=== PATIENT | female | born 1960 | race Caucasian/White ===

== ENCOUNTER → 2017-12-14 11:44 | Outpatient (CLI) | payer BC, SELFPAY | PROVIDERS: Visit Provider Physician Assistant | DX: N39.0 Urinary tract infection, site not specified (principal) | CPT/HCPCS: 87086 ==

== ENCOUNTER → 2017-12-30 07:49 | Outpatient (CLI) | payer BC, SELFPAY ==
[2017-12-30 09:19] LABS: Add Manual Diff / Slide Review NO; Eosinophils Percent Auto 8.9 % (2-4); Hematocrit 38.4 % (36-46); Hemoglobin 13.1 g/dL (12.0-16.0); Lymphocytes Percent Auto 31.8 % (25-40); Mean Corpuscular HGB Conc 34.1 % (30-36); Mean Corpuscular Hemoglobin 32.5 PG (26-34); Mean Corpuscular Volume 95.3 fL (80-100); Monocytes Percent Auto 7.5 % (3-14); Neutrophils Absolute Auto 2700 /uL (3000-5900); Neutrophils Percent Auto 50.8 % (50-75); Platelet Count 291 X10^3/uL (150-400); Red Blood Cell Count 4.03 X10^6/uL (4.0-5.2); Red Cell Distribution Width 12.5 % (11.6-14.8); White Blood Cell Count 5.3 X10^3/uL (4.5-11.0)
[2017-12-30 09:29] LABS: Alanine Aminotransferase 28 IU/L (9-52); Albumin 4.2 g/dL (3.5-5.0); Albumin Globulin Ratio 1.4 (1.0-2.8); Alkaline Phosphatase 52 U/L (38-126); Aspartate Aminotransferase 27 IU/L (14-36); BUN Creatinine Ratio 14.4 (6-22); Bilirubin Total 0.4 mg/dL (0.2-1.3); Blood Urea Nitrogen 13 mg/dL (7-17); Calcium 9.9 mg/dL (8.4-10.2); Carbon Dioxide 34 mmol/L (22-32); Chloride 105 mmol/L (98-107); Cholesterol 225 mg/dL (140-199); Estimated Glomerular Filt Rate > 60.0 mL/min (>60); Glucose 82 mg/dL (70-100); HDL Cholesterol 60 mg/dL (40-60); HEMOLYSIS < 15 (0-50); LDL Cholesterol Calculated 146 mg/dL (<100); Potassium 4.1 mmol/L (3.4-5.1); Sodium 146 mmol/L (137-145); Total Protein 7.2 g/dL (6.3-8.2); Triglycerides 97 mg/dL (35-150)
[2017-12-30 10:23] LABS: Thyroid Stimulating Hormone 2.23 uIU/mL (0.47-4.68)
[2017-12-30 13:05] LABS: Appearance Urine UA CLEAR; Bilirubin Urine UA NEGATIVE (NEGATIVE); Color Urine UA YELLOW; Glucose Urine UA NEGATIVE (Normal); Ketones Urine UA NEGATIVE (NEGATIVE); Leukocyte Esterase Urine UA NEGATIVE (NEGATIVE); Nitrite Urine UA Negative (Negative); Occult Blood Urine UA NEGATIVE (Negative); Protein Urine UA NEGATIVE (Negative); Urobilinogen Urine UA 0.2 E.U./dL (0.2); pH Urine UA 7.5 (4.5-8.0)
== END ==
PROVIDERS: PCP Family Medicine; Visit Provider Family Medicine
DX: Z51.81 Encounter for therapeutic drug level monitoring (principal); E78.5 Hyperlipidemia, unspecified; F41.9 Anxiety disorder, unspecified; J45.909 Unspecified asthma, uncomplicated
CPT/HCPCS: 36415; 80053; 80061; 81003; 84443; 85025

== ENCOUNTER → 2018-03-05 10:14 | Outpatient (CLI) | payer BC, SELFPAY ==
--- NOTE | 2018-03-05 | DI.MG.S_ITS ---
BILATERAL DIGITAL SCREENING MAMMOGRAM 3D/2D WITH CAD: 03/05/2018 CLINICAL: Routine screening. Family history of breast cancer. Comparison is made to exams dated: 02/15/2017 mammogram and 02/03/2016 mammogram - [facility]. There are scattered fibroglandular elements in both breasts. Current study was also evaluated with a Computer Aided Detection (CAD) system. There is an oval mass in the left breast at 11 o'clock middle depth. No other significant masses, calcifications, or other findings are seen in either breast. IMPRESSION: INCOMPLETE: NEEDS ADDITIONAL IMAGING EVALUATION The oval mass in the left breast is indeterminate. Additional views with possible ultrasound are recommended. This exam was interpreted at Station ID: [id number]. NOTE: For mammograms, a report in lay terms will be sent to the patient. Approximately 15% of breast malignancies will not be visualized mammographically. In the management of a palpable breast mass, a negative mammogram must not discourage biopsy of a clinically suspicious lesion. Electronically Signed By: Angeles awad/ifeoma:03/05/2018 13:36:16 letter sent: Additional Imaging Needed ACR BI-RADS Category 0: Incomplete 3340F
== END ==
PROVIDERS: PCP Family Medicine; Visit Provider Family Medicine
DX: Z12.31 Encounter for screening mammogram for malignant neoplasm of breast (principal); Z80.3 Family history of malignant neoplasm of breast
CPT/HCPCS: 77063; 77067

== ENCOUNTER → 2018-03-24 14:07 | Outpatient (CLI) | payer BC, SELFPAY ==
--- NOTE | 2018-03-24 | DI.MG.S_ITS ---
UNILATERAL LEFT DIGITAL DIAGNOSTIC MAMMOGRAM 3D/2D WITH ADDITIONAL VIEWS: 03/24/2018 CLINICAL: Additional evaluation requested from prior study. Comparison is made to exams dated: 03/05/2018 mammogram - [facility], 02/15/2017 mammogram, and 02/03/2016 mammogram - [facility]. There are scattered fibroglandular elements in left breast. There is 0.5 cm oval low density focal asymmetry with an indistinct and circumscribed margin in the left breast at 12 o'clock middle depth. No other significant masses or calcifications are seen in the breast. IMPRESSION: INCOMPLETE: NEEDS ADDITIONAL IMAGING EVALUATION The 0.5 cm oval low density focal asymmetry in the left breast is indeterminate. An ultrasound is recommended. This exam was interpreted at Station ID: [id number]. NOTE: For mammograms, a report in lay terms will be sent to the patient. Approximately 15% of breast malignancies will not be visualized mammographically. In the management of a palpable breast mass, a negative mammogram must not discourage biopsy of a clinically suspicious lesion. Electronically Signed By: Junito buckley/ifeoma:03/24/2018 15:33:26 letter sent: Need Ultrasound ACR BI-RADS Category 0: Incomplete 3340F
--- NOTE | 2018-03-24 14:09 | DI.US.S_ITS ---
LIMITED ULTRASOUND OF LEFT BREAST: 03/24/2018 CLINICAL: Patient returns for additional imaging over a suspected mass in the left breast. Comparison is made to exams dated: 03/24/2018 mammogram, 03/05/2018 mammogram - [facility], and 02/15/2017 mammogram - [facility]. Color flow and real-time ultrasound of the left breast 12 o'clock region were performed on the areas of interest. There is 0.5 cm x 0.4 cm x 0.5 cm oval complicated cyst with a smooth internal wall in the left breast at 12 o'clock middle depth. This oval complicated cyst is hypoechoic with internal echoes. This likely correlates with mammography findings. Color flow imaging demonstrates that there is no vascularity present. IMPRESSION: PROBABLY BENIGN The 0.5 cm x 0.4 cm x 0.5 cm oval complicated cyst in the left breast is consistent with a complicated cyst and is probably benign. A follow-up mammogram and an ultrasound in 6 months is recommended to demonstrate stability. This exam was interpreted at Station ID: [id number]. Electronically Signed By: Junito buckley/:03/24/2018 17:04:01 letter sent: Followup Recommended Ultrasound BI-RADS: 3 Probably benign
== END ==
PROVIDERS: PCP Family Medicine; Visit Provider Family Medicine
DX: R92.8 Other abnormal and inconclusive findings on diagnostic imaging of breast (principal); N60.02 Solitary cyst of left breast
CPT/HCPCS: 76642; 77065; G0279

== ENCOUNTER → 2018-07-07 07:26 | Outpatient (CLI) | payer BC, SELFPAY ==
[2018-07-07 08:44] LABS: Cholesterol 251 mg/dL (140-199); HDL Cholesterol 68 mg/dL (40-60); LDL Cholesterol Calculated 161 mg/dL (<100); Triglycerides 108 mg/dL (35-150)
== END ==
PROVIDERS: PCP Family Medicine; Visit Provider Family Medicine
DX: E78.5 Hyperlipidemia, unspecified (principal)
CPT/HCPCS: 36415; 80061

== ENCOUNTER → 2018-09-07 13:54 | Outpatient (CLI) | payer BC, SELFPAY ==
--- NOTE | 2018-09-07 13:56 | DI.US.S_ITS ---
ULTRASOUND OF LEFT BREAST: 09/07/2018 CLINICAL: 6 month f/u lt. Comparison is made to exams dated: 09/07/2018 mammogram, 03/24/2018 ultrasound, 03/24/2018 mammogram, and 03/05/2018 mammogram - [facility]. Color flow ultrasound of the left breast was performed on the areas of interest. Saunders scale images of the real-time examination were reviewed. There is 0.5 cm cyst in the left breast at 12 o'clock middle depth. This cyst displays internal echoes. This abnormality is not significantly changed. IMPRESSION: PROBABLY BENIGN The 0.5 cm cyst in the left breast is consistent with a complicated cyst and is probably benign. A follow-up ultrasound in 6 months is recommended to demonstrate stability. This exam was interpreted at Station ID: [id number]. SUMMARY: The patient will be due for her bilateral mammogram at this time. Electronically Signed By: Angeles awad/:09/07/2018 16:35:36 letter sent: Followup Recommended Ultrasound BI-RADS: 3 Probably benign
--- NOTE | 2018-09-07 13:56 | DI.MG.S_ITS ---
UNILATERAL LEFT DIGITAL DIAGNOSTIC MAMMOGRAM 3D/2D SHORT-TERM FOLLOW-UP: 09/07/2018 CLINICAL: Patient returns for a 6 month follow up of the left breast. Comparison is made to exams dated: 03/24/2018 mammogram, 03/05/2018 mammogram - [facility], and 02/15/2017 mammogram - [facility]. There are scattered fibroglandular elements in left breast. The 0.5 cm oval low density focal asymmetry with an indistinct and circumscribed margin in the left breast at 12 o'clock middle depth is no longer seen. No other significant masses or calcifications are seen in the breast. IMPRESSION: INCOMPLETE: NEEDS ADDITIONAL IMAGING EVALUATION The previuosly seen focal asymmetry in the left breast at 12 o'clock is no longer vizualised. An ultrasound is recommended to evaluate the previously seen complicated cyst in the left breast and will be performed immediately after this study. This exam was interpreted at Station ID: [id number]. NOTE: For mammograms, a report in lay terms will be sent to the patient. Approximately 15% of breast malignancies will not be visualized mammographically. In the management of a palpable breast mass, a negative mammogram must not discourage biopsy of a clinically suspicious lesion. Electronically Signed By: Angeles Mcmanus M.D. lk/:09/07/2018 14:32:28 ACR BI-RADS Category 0: Incomplete 3340F
== END ==
PROVIDERS: PCP Family Medicine; Visit Provider Family Medicine
DX: R92.8 Other abnormal and inconclusive findings on diagnostic imaging of breast (principal); N60.02 Solitary cyst of left breast
CPT/HCPCS: 76642; 77065; G0279

== ENCOUNTER → 2018-11-09 08:59 | Outpatient (CLI) | payer BC, SELFPAY ==
[2018-11-09 10:14] LABS: Alanine Aminotransferase 17 IU/L (9-52); Albumin 3.8 g/dL (3.5-5.0); Albumin Globulin Ratio 1.4 (1.0-2.8); Alkaline Phosphatase 50 U/L (38-126); Aspartate Aminotransferase 26 IU/L (14-36); BUN Creatinine Ratio 17.5 (6-22); Bilirubin Total 0.3 mg/dL (0.2-1.3); Blood Urea Nitrogen 14 mg/dL (7-17); Calcium 9.4 mg/dL (8.4-10.2); Carbon Dioxide 30 mmol/L (22-32); Chloride 106 mmol/L (98-107); Cholesterol 146 mg/dL (140-199); Estimated Glomerular Filt Rate > 60.0 mL/min (>60); Globulin 2.7 g/dL (1.7-4.1); Glucose 87 mg/dL (70-100); HDL Cholesterol 68 mg/dL (40-60); HEMOLYSIS < 15 (0-50); LDL Cholesterol Calculated 61 mg/dL (<100); Potassium 4.1 mmol/L (3.4-5.1); Sodium 142 mmol/L (137-145); Total Protein 6.5 g/dL (6.3-8.2); Triglycerides 83 mg/dL (35-150)
== END ==
PROVIDERS: PCP Family Medicine; Visit Provider Family Medicine
DX: E78.5 Hyperlipidemia, unspecified (principal); Z51.81 Encounter for therapeutic drug level monitoring
CPT/HCPCS: 36415; 80053; 80061

== ENCOUNTER → 2019-03-10 09:05 | Outpatient (CLI) | payer BC, SELFPAY ==
--- NOTE | 2019-03-10 09:17 | DI.MG.S_ITS ---
BILATERAL DIGITAL DIAGNOSTIC MAMMOGRAM 3D/2D: 03/10/2019 CLINICAL: Short term follow up, due bilateral. Comparison is made to exams dated: 09/07/2018 mammogram, 03/24/2018 mammogram, 03/05/2018 mammogram - [facility], and 02/15/2017 mammogram - [facility]. There are scattered fibroglandular elements in both breasts. There is an oval low density focal asymmetry with an indistinct and circumscribed margin in the left breast at 12 o'clock middle depth. This is not significantly changed. No other significant masses, calcifications, or other findings are seen in either breast. IMPRESSION: INCOMPLETE: NEEDS ADDITIONAL IMAGING EVALUATION The oval low density focal asymmetry in the left breast is indeterminate. An ultrasound is recommended. This exam was interpreted at Station ID: [id number]. NOTE: For mammograms, a report in lay terms will be sent to the patient. Approximately 15% of breast malignancies will not be visualized mammographically. In the management of a palpable breast mass, a negative mammogram must not discourage biopsy of a clinically suspicious lesion. Electronically Signed By: Junito buckley/ifeoma:03/10/2019 10:03:42 ACR BI-RADS Category 0: Incomplete 3340F
--- NOTE | 2019-03-10 09:17 | DI.US.S_ITS ---
LIMITED ULTRASOUND OF LEFT BREAST: 03/10/2019 CLINICAL: 6 month follow-up of the left breast. Comparison is made to exams dated: 03/10/2019 mammogram, 09/07/2018 ultrasound, 09/07/2018 mammogram, 03/24/2018 ultrasound, 03/24/2018 mammogram, and 03/05/2018 mammogram - [facility]. Color flow and real-time ultrasound of the left breast 12 o'clock region were performed on the areas of interest. There is a 0.4 cm x 0.3 cm x 0.5 cm oval cyst in the left breast at 12 o'clock middle depth 5 cm from the nipple. This oval cyst is hypoechoic with internal echoes and posterior acoustic enhancement. This abnormality is not significantly changed and likely correlates with mammography findings. Color flow imaging demonstrates that there is no vascularity present. IMPRESSION: PROBABLY BENIGN The 0.4 cm x 0.3 cm x 0.5 cm oval cyst in the left breast likely represents a complicated cyst and is probably benign. A follow-up ultrasound in 6 months is recommended. A follow-up ultrasound in 6 months is recommended to demonstrate stability. This exam was interpreted at Station ID: [id number]. Electronically Signed By: Junito buckley/:03/10/2019 10:49:47 letter sent: Followup Recommended Ultrasound BI-RADS: 3 Probably benign
== END ==
PROVIDERS: PCP Family Medicine; Visit Provider Family Medicine
DX: R92.8 Other abnormal and inconclusive findings on diagnostic imaging of breast (principal); N60.02 Solitary cyst of left breast; E78.5 Hyperlipidemia, unspecified; Z13.220 Encounter for screening for lipoid disorders; Z13.29 Encounter for screening for other suspected endocrine disorder
CPT/HCPCS: 76642; 77066; G0279

== ENCOUNTER → 2019-05-12 09:25 | Outpatient (CLI) | payer BC, SELFPAY ==
[2019-05-12 09:55] LABS: Hematocrit 39.5 % (36-46); Hemoglobin 13.5 g/dL (12.0-16.0); Mean Corpuscular HGB Conc 34.3 % (30-36); Mean Corpuscular Hemoglobin 32.3 PG (26-34); Mean Corpuscular Volume 94.3 fL (80-100); Platelet Count 321 X10^3/uL (150-400); Red Blood Cell Count 4.19 X10^6/uL (4.0-5.2); Red Cell Distribution Width 12.1 % (11.6-14.8); White Blood Cell Count 5.5 X10^3/uL (4.5-11.0)
[2019-05-12 10:24] LABS: Alanine Aminotransferase 26 IU/L (<35); Albumin 4.2 g/dL (3.5-5.0); Albumin Globulin Ratio 1.4 (1.0-2.8); Alkaline Phosphatase 54 U/L (38-126); Aspartate Aminotransferase 31 IU/L (14-36); BUN Creatinine Ratio 18.8 (6-22); Bilirubin Total 0.4 mg/dL (0.2-1.3); Blood Urea Nitrogen 15 mg/dL (7-17); Calcium 9.7 mg/dL (8.4-10.2); Carbon Dioxide 31 mmol/L (22-32); Chloride 103 mmol/L (98-107); Cholesterol 169 mg/dL (140-199); Estimated Glomerular Filt Rate > 60.0 mL/min (>60); Glucose 89 mg/dL (70-100); HDL Cholesterol 64 mg/dL (40-60); HEMOLYSIS < 15 (0-50); LDL Cholesterol Calculated 86 mg/dL (<100); Sodium 142 mmol/L (137-145); Total Protein 7.2 g/dL (6.3-8.2); Triglycerides 96 mg/dL (35-150)
[2019-05-12 10:51] LABS: TSH w/ Reflex to FT4 2.82 uIU/mL (0.47-4.68)
== END ==
PROVIDERS: PCP Family Medicine; Visit Provider Nurse Practitioner Family
DX: Z00.00 Encounter for general adult medical examination without abnormal findings (principal); E78.5 Hyperlipidemia, unspecified; Z13.29 Encounter for screening for other suspected endocrine disorder
CPT/HCPCS: 36415; 80053; 80061; 84443; 85027

== ENCOUNTER → 2019-05-31 13:34 | Outpatient (CLI) | payer BC, SELFPAY | PROVIDERS: PCP Family Medicine; Referring Provider Nurse Practitioner Family; Visit Provider Nurse Practitioner Family | DX: M81.0 Age-related osteoporosis without current pathological fracture (principal); Z78.0 Asymptomatic menopausal state | CPT/HCPCS: 77080 ==

== ENCOUNTER → 2019-08-25 07:29 | Outpatient (CLI) | payer BC, SELFPAY ==
--- NOTE | 2019-08-25 07:33 | DI.US.S_ITS ---
ULTRASOUND OF LEFT BREAST: 08/25/2019 CLINICAL: 6 month follow-up of cysts. Comparison is made to exams dated: 03/10/2019 ultrasound, 03/10/2019 mammogram, 09/07/2018 ultrasound, 09/07/2018 mammogram, 03/24/2018 ultrasound, and 03/24/2018 mammogram - [facility]. Real-time ultrasound of the left breast was performed on the areas of interest. Saunders scale images of the real-time examination were reviewed. There is a stable 0.4 cm x 0.3 cm x 0.5 cm oval cyst in the left breast at 12 o'clock middle depth 5 cm from the nipple. This oval cyst is hypoechoic with internal echoes and posterior acoustic enhancement. This correlates with mammography findings. Color flow imaging demonstrates that there is no vascularity present. IMPRESSION: PROBABLY BENIGN The stable 0.4 cm x 0.3 cm x 0.5 cm oval cyst in the left breast likely represents a complicated cyst and is probably benign. A follow-up left ultrasound in 6 months is recommended to demonstrate stability. The patient will be due for her bilateral mammogram at that time. This exam was interpreted at Station ID: [id number]. Electronically Signed By: Angeles awad/:08/25/2019 08:45:44 letter sent: Followup Recommended Ultrasound BI-RADS: 3 Probably benign
[2019-08-25 08:41] LABS: Alanine Aminotransferase 22 IU/L (<35); Albumin 3.9 g/dL (3.5-5.0); Albumin Globulin Ratio 1.3 (1.0-2.8); Alkaline Phosphatase 37 U/L (38-126); Aspartate Aminotransferase 30 IU/L (14-36); Bilirubin Total 0.3 mg/dL (0.2-1.3); Blood Urea Nitrogen 15 mg/dL (7-17); Calcium 9.2 mg/dL (8.4-10.2); Carbon Dioxide 30 mmol/L (22-32); Chloride 105 mmol/L (98-107); Estimated Glomerular Filt Rate > 60.0 mL/min (>60); Glucose 91 mg/dL (70-100); HEMOLYSIS < 15 (0-50); Potassium 3.7 mmol/L (3.4-5.1); Sodium 140 mmol/L (137-145); Total Protein 6.9 g/dL (6.3-8.2)
[2019-08-25 08:58] LABS: Vitamin D 25 Hydroxy (D3) 64.9 ng/mL (30.0-100.0)
== END ==
PROVIDERS: PCP Nurse Practitioner Family; Referring Provider Nurse Practitioner Family; Visit Provider Nurse Practitioner Family
DX: R92.8 Other abnormal and inconclusive findings on diagnostic imaging of breast (principal); N60.02 Solitary cyst of left breast; M81.0 Age-related osteoporosis without current pathological fracture
CPT/HCPCS: 36415; 76642; 80053; 82306

== ENCOUNTER → 2020-01-25 15:00 | Outpatient (CLI) | payer BC, SELFPAY ==
--- NOTE | 2020-01-25 15:02 | DI.RAD.S_ITS ---
PROCEDURE: XR KNEE LT 3V INDICATIONS: fall TECHNIQUE: 3 views of the knee were acquired. COMPARISON: None. FINDINGS: Bones: No fractures or dislocations. No suspicious bony lesions. Mild tricompartmental osteoarthritis. Soft tissues: No joint effusion. No suspicious soft tissue calcifications. IMPRESSION: No fracture. No acute osseous lesion. If symptoms and/or clinical suspicion for pathology persists, further assessment with repeat radiographs (7-10 days) or advanced imaging (e.g. CT, MRI or bone scan) may be helpful. Dictated by: Martha Wilson MD, PhD on 01/25/2020 at 16:50 Approved by: Martha Wilson MD, PhD on 01/25/2020 at 16:51
--- NOTE | 2020-01-25 15:02 | DI.RAD.S_ITS ---
PROCEDURE: XR TIBIA FIBULA RT 2V INDICATIONS: fall TECHNIQUE: 2 views of the tibia and fibula were acquired. COMPARISON: None. FINDINGS: Bones: Patient is status post ORIF of distal tibia fibular fractures. No acute fractures or dislocations. No suspicious bony lesions. Soft tissues: No suspicious soft tissue calcifications or masses. IMPRESSION: No acute fracture. No acute osseous lesion. If symptoms and/or clinical suspicion for pathology persists, further assessment with repeat radiographs (7-10 days) or advanced imaging (e.g. CT, MRI or bone scan) may be helpful. Dictated by: Martha Wilson MD, PhD on 01/25/2020 at 16:49 Approved by: Martha Wilson MD, PhD on 01/25/2020 at 16:50
--- NOTE | 2020-01-25 15:02 | DI.RAD.S_ITS ---
PROCEDURE: XR ANKLE LT MIN 3V INDICATIONS: fall TECHNIQUE: 3 views of the ankle were acquired. COMPARISON: [facility], CR, XR TIBIA FIBULA LT 2V, 01/25/2020, 14:53. FINDINGS: Bones: Postsurgical changes compatible with medial malleolus and distal fibular fractures noted. Orthopedic hardware is intact. No lucencies at the bone hardware interface. Fractures have healed in anatomic alignment. No acute fracture. Soft tissues: No tibiotalar joint effusion. Achilles tendon appears normal. IMPRESSION: 1. Status post ORIF of medial malleolus and distal fibular fractures. 2. No acute fracture identified. Dictated by: Martha Wilson MD, PhD on 01/25/2020 at 16:48 Approved by: Martha Wilson MD, PhD on 01/25/2020 at 16:49
== END ==
PROVIDERS: PCP Nurse Practitioner Family; Referring Provider Nurse Practitioner Family; Visit Provider Nurse Practitioner Family
DX: S89.92XA Unspecified injury of left lower leg, initial encounter (principal); M17.12 Unilateral primary osteoarthritis, left knee; M81.0 Age-related osteoporosis without current pathological fracture; M85.879 Other specified disorders of bone density and structure, unspecified ankle and foot; Z98.890 Other specified postprocedural states; W19.XXXA Unspecified fall, initial encounter
CPT/HCPCS: 73562; 73590; 73610

== ENCOUNTER → 2020-02-27 08:45 | Outpatient (CLI) | payer BC, SELFPAY ==
--- NOTE | 2020-02-27 08:47 | DI.MG.S_ITS ---
BILATERAL DIGITAL DIAGNOSTIC MAMMOGRAM 3D/2D SHORT-TERM FOLLOW-UP: 02/27/2020 CLINICAL: Patient returns for a 6 month follow up of the left breast, due for bilateral exam. Comparison is made to exams dated: 03/10/2019 mammogram, 09/07/2018 mammogram, 03/24/2018 mammogram, and 03/05/2018 mammogram - [facility]. The tissue of both breasts is heterogeneously dense. This may lower the sensitivity of mammography. There is a 5 mm round low density asymmetry in the left breast central to the nipple middle depth. This is the abnormality being followed and is less prominent. There also is a 1.1 cm oval focal asymmetry in the left breast at 12 o'clock middle depth. This has become more prominent and increased in size. No other significant masses, calcifications, or other findings are seen in either breast. IMPRESSION: INCOMPLETE: NEEDS ADDITIONAL IMAGING EVALUATION The 5 mm round low density asymmetry in the left breast central to the nipple middle depth is consistent with a complicated cyst by previous ultrasound evaluations. An ultrasound is recommended to document continuted stability. The 1.1 cm oval focal asymmetry in the left breast at 12 o'clock middle depth most likely is a cyst but remains indeterminate. An ultrasound is recommended. This was performed immediately following this exam. This exam was interpreted at Station ID: [id number]. NOTE: For mammograms, a report in lay terms will be sent to the patient. Approximately 15% of breast malignancies will not be visualized mammographically. In the management of a palpable breast mass, a negative mammogram must not discourage biopsy of a clinically suspicious lesion. Electronically Signed By: Qing alba/:02/27/2020 10:35:43 ACR BI-RADS Category 0: Incomplete 3340F
--- NOTE | 2020-02-27 08:47 | DI.US.S_ITS ---
LIMITED ULTRASOUND OF LEFT BREAST: 02/27/2020 CLINICAL: 6 month follow-up of cysts. Comparison is made to exams dated: 02/27/2020 mammogram, 08/25/2019 ultrasound, 03/10/2019 ultrasound, 03/10/2019 mammogram, 09/07/2018 ultrasound, and 09/07/2018 mammogram - [facility]. Color flow and real-time ultrasound of the left breast 12 o'clock region were performed. Saunders scale images of the real-time examination were reviewed. There is a benign 0.4 cm x 0.3 cm x 0.5 cm oval cyst in the left breast at 12 o'clock middle depth 5 cm from the nipple. This oval cyst is hypoechoic. No vascularity. It has been stable for two years. No finding to correspond to the patient's 12:00 1.1 cm oval mammographic abnormality. IMPRESSION: PROBABLY BENIGN The 0.5 cm oval cyst in the left breast is consistent with a complicated cyst, stable, and is therefore benign. A follow-up left mammogram in 6 months is recommended to demonstrate stability of a separate oval 1.1 cm asymmetry seen in the left breast without sonographic correlate. Findings and recommendations were conveyed to the patient at time of exam. This exam was interpreted at Station ID: [id number]. Electronically Signed By: Qing alba/:02/27/2020 11:17:50 letter sent: Followup Recommended Ultrasound BI-RADS: 3 Probably benign
[2020-02-27 12:20] LABS: Hematocrit 38.3 % (36-46); Hemoglobin 12.9 g/dL (12.0-16.0); Mean Corpuscular HGB Conc 33.7 % (30-36); Mean Corpuscular Hemoglobin 32.4 PG (26-34); Mean Corpuscular Volume 96.1 fL (80-100); Platelet Count 254 X10^3/uL (150-400); Red Blood Cell Count 3.98 X10^6/uL (4.0-5.2); Red Cell Distribution Width 12.3 % (11.6-14.8); White Blood Cell Count 5.3 X10^3/uL (4.5-11.0)
[2020-02-27 12:40] LABS: Alanine Aminotransferase 26 IU/L (<35); Albumin 4.3 g/dL (3.5-5.0); Albumin Globulin Ratio 1.3 (1.0-2.8); Alkaline Phosphatase 51 U/L (38-126); Aspartate Aminotransferase 33 IU/L (14-36); BUN Creatinine Ratio 18.8 (6-22); Bilirubin Total 0.4 mg/dL (0.2-1.3); Blood Urea Nitrogen 16 mg/dL (7-17); Calcium 9.2 mg/dL (8.4-10.2); Carbon Dioxide 32 mmol/L (22-32); Chloride 104 mmol/L (98-107); Cholesterol 165 mg/dL (140-199); Estimated Glomerular Filt Rate > 60.0 mL/min (>60); Globulin 3.2 g/dL (1.7-4.1); Glucose 96 mg/dL (80-110); HDL Cholesterol 62 mg/dL (40-60); HEMOLYSIS < 15 (0-50); LDL Cholesterol Calculated 84 mg/dL (<100); Potassium 4.1 mmol/L (3.4-5.1); Sodium 140 mmol/L (137-145); Total Protein 7.5 g/dL (6.3-8.2); Triglycerides 96 mg/dL (35-150)
[2020-02-27 12:47] LABS: Vitamin D 25 Hydroxy (D3) 51.4 ng/mL (30.0-100.0)
== END ==
PROVIDERS: PCP Nurse Practitioner Family; Referring Provider Nurse Practitioner Family; Visit Provider Nurse Practitioner Family
DX: R92.8 Other abnormal and inconclusive findings on diagnostic imaging of breast (principal); N60.02 Solitary cyst of left breast; J45.909 Unspecified asthma, uncomplicated; M81.0 Age-related osteoporosis without current pathological fracture; E78.5 Hyperlipidemia, unspecified
CPT/HCPCS: 36415; 76642; 77066; 80053; 80061; 82306; 85027; G0279

== ENCOUNTER → 2020-06-03 09:27 | Outpatient (CLI) | payer BC, SELFPAY ==
--- NOTE | 2020-06-03 09:31 | DI.RAD.S_ITS ---
PROCEDURE: XR DEXA AXIAL SKELETON INDICATIONS: monitoring COMPARISON: None. FINDINGS: This blank DEXA report has been sent in error by the PACS system. The correct and complete report will be forthcoming in 1-2 days. Thank you for your patience and understanding. Dictated by: Dimitry Temple M.D. on 06/03/2020 at 17:16 Approved by: Dimitry Temple M.D. on 06/03/2020 at 17:17
== END ==
PROVIDERS: PCP Nurse Practitioner Family; Referring Provider Nurse Practitioner Family; Visit Provider Nurse Practitioner Family
DX: M81.0 Age-related osteoporosis without current pathological fracture (principal); Z78.0 Asymptomatic menopausal state; Z82.62 Family history of osteoporosis
CPT/HCPCS: 77080

== ENCOUNTER → 2020-07-26 10:16 | Outpatient (CLI) | payer BC, SELFPAY ==
[2020-07-26] MEDS: COVID-19 VACC #1, MRNA(MOD) 100 MCG/0.5 ML VIAL IM (10:22)
== END ==
PROVIDERS: PCP Nurse Practitioner Family; Visit Provider Internal Medicine
DX: Z23 Encounter for immunization (principal)
CPT/HCPCS: 0011A; 91301

== ENCOUNTER → 2020-08-22 13:00 | Outpatient (CLI) | payer BC, SELFPAY ==
--- NOTE | 2020-08-22 13:02 | DI.MG.S_ITS ---
UNILATERAL LEFT DIGITAL DIAGNOSTIC MAMMOGRAM 3D/2D SHORT-TERM FOLLOW-UP: 08/22/2020 CLINICAL: Short term follow up for the left breast. Comparison is made to exams dated: 02/27/2020 mammogram, 03/10/2019 mammogram, 09/07/2018 mammogram, and 03/24/2018 mammogram - [facility]. The tissue of left breast is heterogeneously dense. This may lower the sensitivity of mammography. There is a 1.1 cm focal asymmetry in the left breast at 12 o'clock middle depth 5.8 cm from the nipple. This is less prominent. No other significant masses or calcifications are seen in the breast. IMPRESSION: PROBABLY BENIGN The 1.1 cm focal asymmetry in the left breast is probably benign. A follow-up mammogram in 6 months is recommended. A follow-up mammogram in 6 months is recommended to demonstrate stability. This exam was interpreted at Station ID: [id number]. NOTE: For mammograms, a report in lay terms will be sent to the patient. Approximately 15% of breast malignancies will not be visualized mammographically. In the management of a palpable breast mass, a negative mammogram must not discourage biopsy of a clinically suspicious lesion. Electronically Signed By: Jordan Castillo M.D., jr/ifeoma:08/22/2020 13:42:52 letter sent: Followup Recommended ACR BI-RADS Category 3: Probably benign 3343F
[2020-08-22 13:35] LABS: Add Manual Diff / Slide Review NO; Basophils Absolute Auto 100 /uL (0-100); Eosinophils Absolute Auto 400 /uL (0-450); Hematocrit 37.5 % (36-46); Hemoglobin 12.9 g/dL (12.0-16.0); Lymphocytes Absolute Auto 1600 /uL (1100-4500); Lymphocytes Percent Auto 26.2 % (25-40); Mean Corpuscular HGB Conc 34.5 % (30-36); Mean Corpuscular Hemoglobin 32.9 PG (26-34); Mean Corpuscular Volume 95.5 fL (80-100); Monocytes Absolute Auto 500 /uL (0-900); Monocytes Percent Auto 7.4 % (3-14); Neutrophils Absolute Auto 3600 /uL (1500-7000); Neutrophils Percent Auto 58.4 % (50-75); Platelet Count 270 X10^3/uL (150-400); Red Blood Cell Count 3.93 X10^6/uL (4.0-5.2); Red Cell Distribution Width 12.6 % (11.6-14.8); White Blood Cell Count 6.2 X10^3/uL (4.5-11.0)
[2020-08-22 13:52] LABS: Alanine Aminotransferase 23 IU/L (<35); Albumin 4.1 g/dL (3.5-5.0); Albumin Globulin Ratio 1.4 (1.0-2.8); Alkaline Phosphatase 43 U/L (38-126); Aspartate Aminotransferase 31 IU/L (14-36); BUN Creatinine Ratio 16.3 (6-22); Bilirubin Total 0.3 mg/dL (0.2-1.3); Blood Urea Nitrogen 16 mg/dL (7-17); Calcium 9.6 mg/dL (8.4-10.2); Carbon Dioxide 27 mmol/L (22-32); Chloride 105 mmol/L (98-107); Estimated Glomerular Filt Rate 57.9 mL/min (>60); Glucose 99 mg/dL (80-110); HEMOLYSIS < 15 (0-50); Potassium 4.2 mmol/L (3.4-5.1); Sodium 138 mmol/L (137-145); Total Protein 7.1 g/dL (6.3-8.2)
== END ==
PROVIDERS: PCP Nurse Practitioner Family; Referring Provider Nurse Practitioner Family; Visit Provider Nurse Practitioner Family
DX: D24.2 Benign neoplasm of left breast (principal); E78.5 Hyperlipidemia, unspecified; J45.909 Unspecified asthma, uncomplicated; M81.0 Age-related osteoporosis without current pathological fracture; M85.879 Other specified disorders of bone density and structure, unspecified ankle and foot
CPT/HCPCS: 36415; 77065; 80053; 85025; G0279

== ENCOUNTER → 2020-08-23 10:18 | Outpatient (CLI) | payer BC, SELFPAY ==
[2020-08-23] MEDS: COVID-19 VACC #2, MRNA(MOD) 100 MCG/0.5 ML VIAL IM (10:33)
== END ==
PROVIDERS: PCP Nurse Practitioner Family; Visit Provider Internal Medicine
DX: Z23 Encounter for immunization (principal)
CPT/HCPCS: 0012A; 91301

== ENCOUNTER → 2020-09-24 10:43 | Outpatient (CLI) | payer BC, SELFPAY | PROVIDERS: PCP Nurse Practitioner Family; Visit Provider Physician Assistant | DX: N34.3 Urethral syndrome, unspecified (principal) | CPT/HCPCS: 87086 ==

== ENCOUNTER → 2020-10-02 10:28 | Outpatient (CLI) | payer BC, SELFPAY | PROVIDERS: PCP Nurse Practitioner Family; Visit Provider Physician Assistant | DX: N30.01 Acute cystitis with hematuria (principal) | CPT/HCPCS: 87086 ==

== ENCOUNTER → 2020-12-04 10:55 | Outpatient (CLI) | payer BC, SELFPAY ==
[2020-12-04 13:33] LABS: Blood Urea Nitrogen 13 mg/dL (7-17); Carbon Dioxide 30 mmol/L (22-32); Chloride 106 mmol/L (98-107); Estimated Glomerular Filt Rate > 60.0 mL/min (>60); Glucose 90 mg/dL (80-110); HEMOLYSIS < 15 (0-50); Potassium 4.2 mmol/L (3.4-5.1); Sodium 140 mmol/L (137-145)
== END ==
PROVIDERS: PCP Nurse Practitioner Family; Referring Provider Specialist; Visit Provider Specialist
DX: Z01.812 Encounter for preprocedural laboratory examination (principal)
CPT/HCPCS: 36415; 80048

== ENCOUNTER → 2020-12-09 12:36 | Outpatient (CLI) | payer BC, SELFPAY ==
--- NOTE | 2020-12-09 12:37 | DI.CT.S_ITS ---
PROCEDURE: CT ABDOMEN PELVIS WO/W CON INDICATIONS: Microscopic hematuria TECHNIQUE: Optional 5 mm thick noncontrast images acquired from the diaphragm to the symphysis pubis. After the administration of intravenous contrast, 5 mm thick images acquired from the diaphragm to the symphysis pubis after a 10-minute delay. 2 mm thick coronal and sagittal reformats were then performed of the kidneys and ureters. For radiation dose reduction, the following was used: automated exposure control, adjustment of mA and/or kV according to patient size. COMPARISON: None. FINDINGS: Image quality: Excellent. Lung bases: Lung bases are clear. Heart size is normal. Note is made of a soft tissue prominence at the upper gastric cardia to the degree that a mass lesion in this area is suspected. There is also a small hiatal hernia more superiorly at the esophagogastric junction. Urinary system: Both kidneys are normal in size, without hydronephrosis or nephrolithiasis on pre-contrast images. No perinephric fat stranding. There is normal bilateral renal enhancement. Renal calyces appear normal in morphology when filled with contrast. Opacified portions of both ureters demonstrate normal caliber. Bladder wall thickness is normal. No calcified bladder stones. Other solid organs: Liver is normal in size and enhancement. Gallbladder appears normal . Biliary system is non dilated. Pancreas enhances normally. Spleen is normal in size and enhancement. No adrenal nodules. Peritoneum and bowel: Bowel loops demonstrate normal wall thickness and caliber. No free fluid or air. Nodes and vessels: No retroperitoneal or mesenteric adenopathy by size criteria. Aorta and inferior vena cava are normal in size. Abdominal wall: No ventral hernias. Pelvis: No pathologic free pelvic fluid. No inguinal hernias or adenopathy. Bones: No suspicious bony lesions. No vertebral body compression fractures. IMPRESSION: 1. There is an unexpected finding of a soft tissue prominence at the gastric cardia, immediately below a small hiatal hernia. This is in an area of relative absence of collapse of the stomach and the appearance warrants both clinical correlation and consideration of upper GI examination and/or endoscopies. 2. A source of microscopic hematuria is not seen. No urinary tract stone is found. No urothelial or renal cortical mass lesion is seen. Dictated by: Alber Ribera M.D. on 12/09/2020 at 16:24 Approved by: Alber Ribera M.D. on 12/09/2020 at 16:32
== END ==
PROVIDERS: PCP Nurse Practitioner Family; Referring Provider Specialist; Visit Provider Specialist
DX: R31.29 Other microscopic hematuria (principal); R30.0 Dysuria; R39.9 Unspecified symptoms and signs involving the genitourinary system; K44.9 Diaphragmatic hernia without obstruction or gangrene; K31.9 Disease of stomach and duodenum, unspecified; Z87.442 Personal history of urinary calculi
CPT/HCPCS: 74178

== ENCOUNTER → 2020-12-18 11:30 | Outpatient (CLI) | payer BC, SELFPAY ==
[2020-12-18 12:05] LABS: COVID19 -Nasal RAPID Negative (Negative)
== END ==
PROVIDERS: PCP Nurse Practitioner Family; Visit Provider Surgery
DX: Z20.822 Contact with and (suspected) exposure to COVID-19 (principal); Z01.812 Encounter for preprocedural laboratory examination
CPT/HCPCS: 87635

== ENCOUNTER 2020-12-19 12:38 | Day surgery (SDC) | payer BC, SELFPAY ==
--- NOTE | 2020-12-19 | PATH_ITS ---
[facility] Accession Number: [id number] . 01 Material submitted: . gastrointestinal site - GASTRIC CARDIA . 01 Clinical history: . SDC . 02 Diagnosis: Stomach, Cardia, Biopsy: Oxyntic-type mucosa with mild chronic inflammation. Negative for Helicobacter by immunohistochemistry. Negative for intestinal metaplasia. Negative for dysplasia and malignancy. V 12/24/2020 1422 Local . 02 Electronically signed: . Margaret Grewal MD, Pathologist NPI- [id number] . 01 Gross description: . GASTRIC CARDIA: Received in formalin are 2 fragment(s) of tran, soft tissue measuring 0.4 x 0.2 x 0.1 cm to 0.3 x 0.2 x 0.1 cm submitted entirely in 1 cassette(s) /QBJ 12/20/2020 0306 Local . 02 Microscopic: . An immunohistochemical stain was performed to evaluate for Helicobacter organisms and is negative. The control stain showed appropriate reactivity. . * This test was developed and its performance characteristics determined by [facility]. It has not been cleared or approved by the U.S. Food and Drug Administration. The FDA has determined that such clearance or approval is not necessary. This test is used for clinical purposes. It should not be regarded as investigational or for research. . 02 Pathologist provided ICD-10: K31.89 . 02 CPT . 585239, [id number] Performed at: 01 [facility] [address] [address], [place], [place] [id number] MD Junito Garvey MD Phone: [phone] Performed at: [address] [place] [id number] [place] [id number] MD Margaret Grewal MD Phone: [phone]
[2020-12-19 13:15] VITALS: BP 95/62; PULSE 66; RESP 14; TEMP 35.5; O2SAT 97; BMI 26.6
[2020-12-19] MEDS: LACTATED RINGERS 1,000 ML 200 ML IV (13:23)
--- NOTE | 2020-12-19 13:53 | PM.PREOP ---
Pre-operative Note Interval Note History & Physical reviewed/Exam performed by Physician: Yes Changes to H&P: No
--- NOTE | 2020-12-19 14:13 | PM.OP.ENDO ---
Operative Date/Time/Diagnoses Date of procedure: 12/19/20 Time of procedure: 14:13 Pre-op diagnosis: Incidental gastric mass Post-op diagnosis: other (Normal stomach) Procedure & Clinicians Study performed: Esophagoduodenoscopy Same procedure as scheduled: Yes Indications: Incidental finding of gastric thickening the cardia on CT Surgeon: Sidney Huizar Procedure Notes Procedure in detail: Patient placed in left lateral decubitus position. Time out was performed. Procedural sedation was administered with Versed and Fentanyl. A bite block was placed. the scope was inserted into the mouth and advanced through the esophagus and into the stomach. The pylorus was intubated and the duodenum was normal to the 2nd portion. The scope was retroflexed within the stomach and there was a moderate hiatal hernia. At the gastric cardia there was prominent submucosal thickening but no sidney mass, perhaps a gastric lipoma. Biopsy performed with forceps. No ulcers. The scope was withdrawn into the esophagus the Z line was seen at 30 cm from the incisions. There was no Contreras's esophagitis or masses or strictures. Stomach was desufflated and scope removed. Patient tolerated procedure well. Specimen(s): other (gastric cardia) Complications: none Impression: grossly normal stomach Post-procedure Plan for aftercare: will notify with biopsy results Disposition: same day surgery
[2020-12-19] MEDS: fentaNYL 250 MCG/5 ML INJ IV (14:14)
[2020-12-19] MEDS: MIDAZOLAM 5 MG/5 ML VIAL IV (14:15)
[2020-12-19 14:16] VITALS: BP 106/62; PULSE 72; RESP 16; TEMP 36.7; O2SAT 95
[2020-12-19 14:21] VITALS: BP 99/74; PULSE 73; RESP 16; O2SAT 95
[2020-12-19 14:26] VITALS: BP 87/63; PULSE 65; RESP 16; O2SAT 97
[2020-12-19 14:50] VITALS: BP 91/54; PULSE 63; RESP 13; O2SAT 100
== END 2020-12-19 15:13 | disposition home or self-care (01) ==
PROVIDERS: PCP Nurse Practitioner Family; Referring Provider Surgery; Visit Provider Surgery
PROC: 0DJ08ZZ Inspection of Upper Intestinal Tract, Via Natural or Artificial Opening Endoscopic (ICD-10-PCS; CPT 43235; principal; 2020-12-19 13:45)
DX: K29.50 Unspecified chronic gastritis without bleeding (principal); K44.9 Diaphragmatic hernia without obstruction or gangrene
CPT/HCPCS: 43239; J2250; J3010

== ENCOUNTER → 2021-02-14 12:39 | Outpatient (CLI) | payer BC, SELFPAY ==
--- NOTE | 2021-02-14 12:41 | DI.MG.S_ITS ---
BILATERAL DIGITAL DIAGNOSTIC MAMMOGRAM 3D/2D: 02/14/2021 CLINICAL: Short term follow up for the left breast. Comparison is made to exams dated: 08/22/2020 mammogram, 02/27/2020 mammogram, 03/10/2019 ultrasound, 02/27/2020 ultrasound, 08/25/2019 ultrasound, and 03/05/2018 mammogram - [facility]. The tissue of both breasts is heterogeneously dense. This may lower the sensitivity of mammography. There is an oval low density focal asymmetry in the left breast at 12 o'clock middle depth. This is less prominent and was not seen on the prior ultrasound. There also is a stable benign oval complicated cyst in the left breast central to the nipple middle depth. This previously demonstrated long-term stability. No other significant masses, calcifications, or other findings are seen in either breast. IMPRESSION: PROBABLY BENIGN Focal asymmetry in the left breast at 12 o'clock middle depth resembles fibroglandular tissue and is probably benign. A follow-up mammogram in 12 months is recommended to demonstrate long-term stability. Exam findings were conveyed to the patient. This exam was interpreted at Station ID: [id number]. NOTE: For mammograms, a report in lay terms will be sent to the patient. Approximately 15% of breast malignancies will not be visualized mammographically. In the management of a palpable breast mass, a negative mammogram must not discourage biopsy of a clinically suspicious lesion. Electronically Signed By: Hung Aguilar M.D. slc/:02/14/2021 13:21:00 letter sent: Followup Recommended ACR BI-RADS Category 3: Probably benign 3343F
== END ==
PROVIDERS: PCP Nurse Practitioner Family; Referring Provider Nurse Practitioner Family; Visit Provider Nurse Practitioner Family
DX: R92.8 Other abnormal and inconclusive findings on diagnostic imaging of breast (principal); N64.89 Other specified disorders of breast
CPT/HCPCS: 77066; G0279

== ENCOUNTER → 2021-02-25 08:36 | Outpatient (CLI) | payer BC, SELFPAY ==
[2021-02-25 09:44] LABS: Hematocrit 37.8 % (36-46); Hemoglobin 12.8 g/dL (12.0-16.0); Mean Corpuscular HGB Conc 33.9 % (30-36); Mean Corpuscular Volume 94.5 fL (80-100); Platelet Count 265 X10^3/uL (150-400); Red Cell Distribution Width 12.4 % (11.6-14.8); White Blood Cell Count 5.6 X10^3/uL (4.5-11.0)
[2021-02-25 10:00] LABS: Alanine Aminotransferase 27 IU/L (<35); Albumin 4.2 g/dL (3.5-5.0); Albumin Globulin Ratio 1.6 (1.0-2.8); Alkaline Phosphatase 45 U/L (38-126); Aspartate Aminotransferase 32 IU/L (14-36); BUN Creatinine Ratio 17.2 (6-22); Bilirubin Total 0.4 mg/dL (0.2-1.3); Blood Urea Nitrogen 17 mg/dL (7-17); Calcium 9.7 mg/dL (8.4-10.2); Carbon Dioxide 30 mmol/L (22-32); Chloride 103 mmol/L (98-107); Cholesterol 173 mg/dL (140-199); Globulin 2.6 g/dL (1.7-4.1); Glucose 94 mg/dL (80-110); HDL Cholesterol 70 mg/dL (40-60); HEMOLYSIS < 15 (0-50); LDL Cholesterol Calculated 84 mg/dL (<100); Potassium 4.2 mmol/L (3.4-5.1); Sodium 140 mmol/L (137-145); Total Protein 6.8 g/dL (6.3-8.2); Triglycerides 97 mg/dL (35-150)
[2021-02-25 10:19] LABS: Vitamin D 25 Hydroxy (D3) 58.7 ng/mL (30.0-100.0)
== END ==
PROVIDERS: PCP Nurse Practitioner Family; Referring Provider Nurse Practitioner Family; Visit Provider Nurse Practitioner Family
DX: J45.909 Unspecified asthma, uncomplicated (principal); M81.0 Age-related osteoporosis without current pathological fracture; E78.5 Hyperlipidemia, unspecified
CPT/HCPCS: 36415; 80053; 80061; 82306; 85027

== ENCOUNTER → 2021-08-27 11:38 | Outpatient (CLI) | payer BC, SELFPAY | PROVIDERS: PCP Family Medicine; Referring Provider Family Medicine; Visit Provider Family Medicine | DX: M81.0 Age-related osteoporosis without current pathological fracture (principal); Z78.0 Asymptomatic menopausal state; M19.90 Unspecified osteoarthritis, unspecified site | CPT/HCPCS: 77080 ==

== ENCOUNTER 2021-09-16 22:19 | Emergency (ER) | payer BC, SELFPAY ==
[2021-09-16] VITALS (13 sets, daily range): BP systolic 81–148; BP diastolic 46–77; PULSE 55–79; RESP 15–23; TEMP 36.7; O2SAT 96–98
--- NOTE | 2021-09-16 22:27 | DI.RAD.S_ITS ---
PROCEDURE: XR CHEST 1V INDICATIONS: chest pain TECHNIQUE: One view of the chest was acquired. COMPARISON: None. FINDINGS: Surgical changes and devices: None. Lungs and pleura: Lungs are clear. No pleural effusions or pneumothorax. Mediastinum: Mediastinal contours appear normal. Heart size is normal. Bones and chest wall: No suspicious bony lesions. Overlying soft tissues appear unremarkable. IMPRESSION: 1. No acute cardiopulmonary disease. Dictated by: Junito Moreau M.D. on 09/16/2021 at 23:13 Approved by: Junito Moreau M.D. on 09/16/2021 at 23:14
--- NOTE | 2021-09-16 22:42 | ED_ITS ---
HPI - Chest Pain General Chief Complaint: Chest Pain Stated Complaint: chest pain radiating to back Time Seen by Provider: 09/16/21 22:28 Source: patient Mode of arrival: Ambulatory History of Present Illness HPI narrative: 60-year-old female nonsmoker with history of hypertension and hyperlipidemia as well as GERD presents with family in the chief complaint of some burning upper abdominal discomfort that radiates to her back. She denies any exertional component nor recent fatigue or unexplained shortness of breath. She denies dizziness, weakness or lightheadedness. She has no diaphoresis. She has had no recent travel, injury, history of blood clot or known cancer. She denies that food or drink make this worse but states lying flat seems to exacerbate her symptoms. Has only very minimal symptoms on arrival Related Data Home Medications Medication Instructions Recorded Confirmed cholecalciferol (vitamin D3) 50 50 mcg PO DAILY 09/04/20 03/26/21 mcg (2,000 unit) capsule multivitamin 1 tab PO DAILY 09/04/20 03/26/21 Previous Rx's Medication Instructions Recorded budesonide-formoterol HFA 160 2 puff INHALATION ONCE PRN #10.2 12/02/18 mcg-4.5 mcg/actuation aerosol gram inhaler (Symbicort) citalopram 20 mg tablet 10 mg PO DAILY #90 tab 01/01/21 alendronate 70 mg tablet See Rx Instructions .ROUTE 06/12/21 .COMPLEX #12 tab atorvastatin 20 mg tablet See Rx Instructions .ROUTE 07/01/21 .COMPLEX #90 tab albuterol sulfate 90 mcg/actuation 1 puff INHALATION Q4-6H PRN #18 07/18/21 aerosol inhaler (Ventolin HFA) gram pantoprazole 40 mg tablet,delayed 40 mg PO DAILY #30 tab 09/17/21 release (Protonix) Allergies Allergy/AdvReac Type Severity Reaction Status Date / Time kiwi Allergy Severe Anaphylaxis Verified 03/26/21 09:30 amoxicillin Allergy Intermediate Rash Verified 03/26/21 09:30 oxycodone [From Percocet] Allergy Intermediate Rash Verified 03/26/21 09:30 Penicillins Allergy Intermediate Rash Verified 03/26/21 09:30 Review of Systems Review of Systems Narrative: GENERAL: Denies chills, fatigue, malaise, fever, sweats. HEENT: Denies sinus pain, ear pain, sore throat, difficulty swallowing, dizziness. RESPIRATORY: Denies dyspnea, cough, wheezing, hemoptysis, sputum. CARDIOVASCULAR: See HPI GASTROINTESTINAL: See HPI MUSCULOSKELETAL: denies weakness, joint pain, or bony pain SKIN: Denies rash, skin lesions, or other NEUROLOGIC: Denies weakness, headache, numbness, change in speech, confusion, seizures, incoordination. PSYCHIATRIC: No concerning psychosocial issues. 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) Osteoporosis (05/2019) Panic attacks Postmenopausal atrophic vaginitis Restless leg syndrome Restless leg syndrome Vertigo Surgical History History of ankle surgery History of breast biopsy Hx of section Family History Grandmother Breast cancer Grandfather Bladder cancer Mother Osteopenia Grandfather Diabetes mellitus Grandmother Diabetes mellitus Social History marital status: number of children: 1 household members: spouse and children pets and animals: Yes education level: college occupational status: other Previous occupational history: speech and language pathologist seatbelt use: always water heater temp set < 120 deg: Yes working smoke detector in home: Yes fire extinguisher in home: Yes carbon monox detector in home: Yes firearms in home: No Smoking Status: Never smoker alcohol intake: current substance use type: does not use during the past year weight has: remained stable well-balanced diet: about half the time daily servings fruits/ve-4 caffeine: Yes eating out: 1-3 times/week Type(s) of exercise: walking and additional frequency: 3-4 times per week duration: 30-45 minutes/day Smoking Status: Never smoker alcohol intake frequency: a few times a month Substance Use Type: does not use Exam Narrative Exam Narrative: GENERAL: [60 year old patient appears stated age. Well-developed patient, in mild distress. HEAD: Atraumatic. Normocephalic. EYES: Pupils equal round and reactive. Extraocular motions intact. No scleral icterus. No injection or drainage. ENT: Nose without bleeding, purulent drainage. Throat without erythema, tonsillar hypertrophy or exudate. Airway patent. NECK: Trachea midline. Non tender CARDIOVASCULAR: Regular rate and rhythm without murmurs, gallops, or rubs. RESPIRATORY: Clear to auscultation. Breath sounds equal bilaterally. No wheezes, rales, or rhonchi. GASTROINTESTINAL: Abdomen soft, non-tender, nondistended. EXTREMITIES: No edema or joint tenderness. BACK: Nontender without deformity or crepitance. No flank tenderness. NEURO: AOx3. SKIN: No rash or erythema of visible areas Initial Vital Signs Initial Vital Signs: Vital Signs Pulse Rate 68 09/16/21 22:26 Pulse Oximetry 98 09/16/21 22:26 Scores HEART Score Heart Score history: Slightly Suspicious Heart Score EKG: Normal Heart Score Age: 45-64 years old Heart Score risk factors: 1-2 risk factors Heart Score troponin: < or = to normal limit Heart Score Total: 2 Course Orders Ordered: Discontinued Medications Al Hydrox/Mg Hydrox/Simethicone 20 ml/ Lidocaine HCl 15 ml 0 ml PO NOW ONE Stop: 09/17/21 00:27 Last Admin: 09/17/21 00:48 Dose: 35 ml Documented by: VY Lidocaine HCl (Lidocaine Viscous 2% 15 Ml Solution) 15 ml PO NOW ONE Stop: 09/17/21 00:53 Last Admin: 09/17/21 02:28 Dose: Not Given Documented by: WES Nitroglycerin (Nitroglycerin 0.4 Mg Sl Tab) 0.4 mg SL NOW ONE Stop: 09/16/21 23:24 Last Admin: 09/16/21 23:33 Dose: 0.4 mg Documented by: IKE Pantoprazole Sodium (Pantoprazole 40 Mg Vial) 40 mg IV NOW ONE Stop: 09/17/21 00:27 Last Admin: 09/17/21 00:55 Dose: 40 mg Documented by: VY Vital Signs Vital signs: Vital Signs - 8 hr 09/16/21 22:26 09/16/21 22:27 09/16/21 22:28 Temperature 98.1 F Pulse Rate 68 79 79 Respiratory Rate 16 Blood Pressure 148/77 H 133/66 Pulse Oximetry 98 97 98 09/16/21 22:30 09/16/21 23:00 09/16/21 23:01 Temperature Pulse Rate 62 59 L 60 Respiratory Rate 19 20 22 Blood Pressure 129/61 108/53 L Pulse Oximetry 98 97 97 09/16/21 23:33 Temperature Pulse Rate 62 Respiratory Rate Blood Pressure 109/57 L Pulse Oximetry MDM - Chest Pain Lab Data Result diagrams: 09/16/21 22:40 09/16/21 22:40 Labs: Lab Results 09/16/21 09/16/21 09/16/21 Range/Units 22:40 22:40 22:40 WBC 6.8 (4.5-11.0) X10^3/uL RBC 3.85 L (4.0-5.2) X10^6/uL Hgb 12.5 (12.0-16.0) g/dL Hct 36.5 (36-46) % MCV 94.8 (80-100) fL MCH 32.6 (26-34) PG MCHC 34.4 (30-36) % RDW 12.3 (11.6-14.8) % Plt Count 278 (150-400) X10^3/uL Neut % (Auto) 45.5 L (50-75) % Lymph % (Auto) 38.1 (25-40) % [place] % (Auto) 8.8 (3-14) % Eos % (Auto) 6.4 H (2-4) % Baso % (Auto) 1.2 (0-2) % Neut # (Auto) 3100 (3164-1197) /uL Lymph # (Auto) 2600 (6588-0253) /uL [place] # (Auto) 600 (0-900) /uL Eos # (Auto) 400 (0-450) /uL Baso # (Auto) 100 (0-100) /uL D-Dimer 297 H (<230) ng/mL Sodium 140 (137-145) mmol/L Potassium 4.2 (3.4-5.1) mmol/L Chloride 105 (98-107) mmol/L Carbon Dioxide 25 (22-32) mmol/L BUN 17 (7-17) mg/dL Creatinine 0.90 (0.52-1.04) mg/dL Estimated GFR > 60 (>60) mL/min BUN/Creatinine Ratio 18.9 (6-22) Glucose 101 (80-110) mg/dL Calcium 9.1 (8.4-10.2) mg/dL Magnesium 2.1 (1.6-2.3) mg/dL Total Bilirubin 0.5 (0.2-1.3) mg/dL AST 41 H (14-36) IU/L ALT 35 H (<35) IU/L Alkaline Phosphatase 46 (38-126) U/L Total Creatine Kinase 70 (30-135) U/L CK-MB (CK-2) TNP CK-MB (CK-2) Rel Index TNP Troponin I < 0.012 (0.01-0.034) ng/mL Total Protein 7.8 (6.3-8.2) g/dL Albumin 4.3 (3.5-5.0) g/dL Globulin 3.5 (1.7-4.1) g/dL Albumin/Globulin Ratio 1.2 (1.0-2.8) Lipase 229 (23-300) U/L 09/17/21 Range/Units 01:45 WBC (4.5-11.0) X10^3/uL RBC (4.0-5.2) X10^6/uL Hgb (12.0-16.0) g/dL Hct (36-46) % MCV (80-100) fL MCH (26-34) PG MCHC (30-36) % RDW (11.6-14.8) % Plt Count (150-400) X10^3/uL Neut % (Auto) (50-75) % Lymph % (Auto) (25-40) % [place] % (Auto) (3-14) % Eos % (Auto) (2-4) % Baso % (Auto) (0-2) % Neut # (Auto) (8866-9177) /uL Lymph # (Auto) (3476-4469) /uL [place] # (Auto) (0-900) /uL Eos # (Auto) (0-450) /uL Baso # (Auto) (0-100) /uL D-Dimer (<230) ng/mL Sodium (137-145) mmol/L Potassium (3.4-5.1) mmol/L Chloride (98-107) mmol/L Carbon Dioxide (22-32) mmol/L BUN (7-17) mg/dL Creatinine (0.52-1.04) mg/dL Estimated GFR (>60) mL/min BUN/Creatinine Ratio (6-22) Glucose (80-110) mg/dL Calcium (8.4-10.2) mg/dL Magnesium (1.6-2.3) mg/dL Total Bilirubin (0.2-1.3) mg/dL AST (14-36) IU/L ALT (<35) IU/L Alkaline Phosphatase (38-126) U/L Total Creatine Kinase 57 (30-135) U/L CK-MB (CK-2) TNP CK-MB (CK-2) Rel Index TNP Troponin I < 0.012 (0.01-0.034) ng/mL Total Protein (6.3-8.2) g/dL Albumin (3.5-5.0) g/dL Globulin (1.7-4.1) g/dL Albumin/Globulin Ratio (1.0-2.8) Lipase (23-300) U/L Imaging Data Chest x-ray: Radiologist's Impression: Close Abdomen Ultrasound (Signed) Martha Wilson - 09/17/21 Chest X-Ray (Signed) Junito Moreau - 09/16/21 Bone Densitometry 08/27/21 DEXA Result 08/27/21 Mammogram Diagnostic (Signed) Hung Aguilar - 02/14/21 Telemetry Strips 12/19/20 Abdomen/Pelvis CT (Signed) Alber Ribera - 12/09/20 Mammogram Diagnostic (Signed) Jordan Castillo - 08/22/20 DEXA Result 06/03/20 Bone Densitometry (Signed) Dimitry Temple - 06/03/20 Mammogram Diagnostic (Signed) Qing Ballard - 02/27/20 Breast Ultrasound (Signed) Qing Ballard - 02/27/20 Tibia/Fibula X-Ray (Addendum) Martha Wilson - 01/25/20 Knee X-Ray (Signed) Katie,Martha - 01/25/20 Ankle X-Ray (Signed) Katie,Martha - 01/25/20 Breast Ultrasound (Signed) Angeles Mcmanus - 08/25/19 DEXA Result 05/31/19 Bone Densitometry 05/31/19 Mammogram Diagnostic (Signed) Moreau,Junito - 03/10/19 Breast Ultrasound (Signed) Moreau,Junito - 03/10/19 Mammogram Diagnostic (Signed) YonathanAngeles - 09/07/18 Breast Ultrasound (Signed) Yonathan,Angeles - 09/07/18 Breast Ultrasound (Signed) Moreau,Junito - 03/24/18 Mammogram, Additional Views (Signed) Moreau,Junito - 03/24/18 Mammogram Screening (Signed) Angeles Mcmanus - 03/05/18 Launch?Image [address] [address] XRay Report Signed Patient: Myrna Stein MR#: [id number] : 1960 Acct:[id number] Age/Sex: 60 / F Date of Service: 09/16/21 Loc: ED Accession Number: [id number] ?? Procedure: XR chest 1V Ordering Provider: Aly Rutherford D.O. PROCEDURE:? XR CHEST 1V ? INDICATIONS:? chest pain ? TECHNIQUE:? One view of the chest was acquired.? ? COMPARISON:? None. ? FINDINGS:? ? Surgical changes and devices:? None.? ? Lungs and pleura:? Lungs are clear.? No pleural effusions or pneumothorax.? ? Mediastinum:? Mediastinal contours appear normal.? Heart size is normal.? ? Bones and chest wall:? No suspicious bony lesions.? Overlying soft tissues appear unremarkable.? ? IMPRESSION:? ? 1.? No acute cardiopulmonary disease. ? ? ? Dictated by: Junito Moreau M.D. on 09/16/2021 at 23:13 ? ? Approved by: Junito Moreau M.D. on 09/16/2021 at 23:14 ? US - abdomen: Radiologist's Impression: [address] [address] Ultrasound Report Signed Patient: Myrna Stein MR#: [id number] : 1960 Acct:[id number] Age/Sex: 60 / F Date of Service: 09/17/21 Loc: ED Accession Number: [id number] ?? Procedure: US abdomen limited Ordering Provider: Aly Rutherford D.O. PROCEDURE: US ABDOMEN LIMITED ? INDICATIONS:? epigastric pain, radiation to the back ? TECHNIQUE:? Real-time focused scanning was performed of the abdomen, with image documentation.? ? COMPARISON:? None. ? FINDINGS:? ? Liver is normal in size and homogeneous in echotexture. ? Gallbladder is sonographically normal. No gallstones. No gallbladder wall thickening. No pericholecystic fluid. No sonographic Nina sign. ? Biliary tree is nondilated.? Common bile duct measures 4.1 millimeters. ? Pancreas obscured by bowel gas. ? IMPRESSION:? No sonographic evidence of cholelithiasis or cholecystitis. If there is continued clinical concern for cholecystitis, a nuclear medicine HIDA scan should be considered for further evaluation. ? ? ? Dictated by: Martha Wilson MD, PhD on 09/17/2021 at 9:11 ? ? Approved by: Martha Wilson MD, PhD on 09/17/2021 at 9:12 ? MDM Narrative Medical decision making narrative: Multiple etiologies for patient's symptoms considered including: [GERD versus gastritis versus peptic ulcer disease versus cardiac ischemia versus pulmonary embolism versus dissection versus other Multiple causes of chest pain considered including DC, PE, pneumothorax, pne umonia, aortic dissection, and pleurisy. Patient reports no radiation, no diaphoresis, no provocation with exertion, and no vomiting. Heart score is 2, EKGs are nonischemic and troponins x2 are negative. Pulmonary embolism considered but thought unlikely given reassuring vital signs and exam, however D-dimer ordered and when corrected for age is negative. No advanced imaging needed Burning discomfort in the epigastrium with radiation to the back raises suspicion for gastrointestinal complaint, biliary and pancreatic considerations present, however thought unlikely given lack of supporting labs or imaging. Patient did have significant improvement after Protonix and a GI cocktail Patient's symptoms improved over duration of stay with above-stated therapies. Findings and discharge diagnosis discussed with patient/family followed by verbalization of understanding Return precautions discussed with patient/family whom verbalize understanding. Discharge Plan Departure Patient Disposition: Home Clinical Impression: Acute epigastric pain Instructions: DI for Epigastric Pain Activity Restrictions/Additional Instructions: *You have been diagnosed with [epigastric pain. As we discussed her history and physical exam are reassuring. EKGs showed no evidence of cardiac event. Labs are reassuring and demonstrate no heart attack, blood clot, gallbladder disease or other. Your ultrasound showed no abnormality. *What to do: *Please continue to take your regular medications as directed. [ x] New medication prescriptions sent to your pharmacy: [ ] [ ] New medication written as a paper prescription [ ] No new medications given *Please follow up with your primary care provider in 2-3 days, call for an appointment. Let them know you were seen in the Emergency Department and that we ask that you be seen in follow up. We will electronically transmit a record of today's note if your PCP is in our system *If you do not have a primary care provider please contact the [facility] Resource line at [phone]. They will ask some questions about your medical history and help get you set up with a doctor in the community. *Please consider a clear liquid diet for the next 24-48 hours and avoid spicy, fatty foods, dairy, alcohol and significant nicotine. *Return to Emergency Department if you should have any new, worsening or concerning symptoms, such as [fever greater than 101 F, shaking chills, worsening pain, persistent vomiting or other bothersome symptoms] Prescriptions: New pantoprazole [Protonix] 40 mg tablet,delayed release (DR/EC) 40 mg PO DAILY Qty: 30 0RF No Action Symbicort 160-4.5 mcg/actuation HFA aerosol inhaler 2 puff INHALATION ONCE PRN (Reason: seasonal) Qty: 10.2 0RF citalopram 20 mg tablet 10 mg PO DAILY Qty: 90 1RF alendronate 70 mg tablet See Rx Instructions .ROUTE .COMPLEX Qty: 12 3RF Dose Instruction: TAKE 1 TABLET EVERY WEEK Rx Instructions: TAKE 1 TABLET EVERY WEEK atorvastatin 20 mg tablet See Rx Instructions .ROUTE .COMPLEX Qty: 90 0RF Dose Instruction: TAKE 1 TABLET EVERY EVENING Rx Instructions: TAKE 1 TABLET EVERY EVENING albuterol sulfate [Ventolin HFA] 90 mcg/actuation HFA aerosol inhaler 1 puff INHALATION Q4-6H PRN (Reason: shortness of breath or wheezing) Qty: 18 0RF cholecalciferol (vitamin D3) 50 mcg (2,000 unit) capsule 50 mcg PO DAILY 0RF multivitamin Tablet 1 tab PO DAILY 0RF Referrals: Kareen Oconnor MD [Primary Care Provider] -
[2021-09-16 22:51] LABS: Add Manual Diff / Slide Review NO; Basophils Absolute Auto 100 /uL (0-100); Basophils Percent Auto 1.2 % (0-2); Eosinophils Absolute Auto 400 /uL (0-450); Eosinophils Percent Auto 6.4 % (2-4); Hematocrit 36.5 % (36-46); Hemoglobin 12.5 g/dL (12.0-16.0); Lymphocytes Absolute Auto 2600 /uL (1100-4500); Lymphocytes Percent Auto 38.1 % (25-40); Mean Corpuscular HGB Conc 34.4 % (30-36); Mean Corpuscular Hemoglobin 32.6 PG (26-34); Mean Corpuscular Volume 94.8 fL (80-100); Monocytes Absolute Auto 600 /uL (0-900); Monocytes Percent Auto 8.8 % (3-14); Neutrophils Absolute Auto 3100 /uL (1500-7000); Neutrophils Percent Auto 45.5 % (50-75); Platelet Count 278 X10^3/uL (150-400); Red Blood Cell Count 3.85 X10^6/uL (4.0-5.2); Red Cell Distribution Width 12.3 % (11.6-14.8); White Blood Cell Count 6.8 X10^3/uL (4.5-11.0)
[2021-09-16 23:02] LABS: Alanine Aminotransferase 35 IU/L (<35); Albumin 4.3 g/dL (3.5-5.0); Albumin Globulin Ratio 1.2 (1.0-2.8); Alkaline Phosphatase 46 U/L (38-126); BUN Creatinine Ratio 18.9 (6-22); Bilirubin Total 0.5 mg/dL (0.2-1.3); Blood Urea Nitrogen 17 mg/dL (7-17); Calcium 9.1 mg/dL (8.4-10.2); Carbon Dioxide 25 mmol/L (22-32); Chloride 105 mmol/L (98-107); Creatine Kinase 70 U/L (30-135); Estimated Glomerular Filt Rate > 60 mL/min (>60); Globulin 3.5 g/dL (1.7-4.1); Glucose 101 mg/dL (80-110); Lipase 229 U/L (23-300); Magnesium 2.1 mg/dL (1.6-2.3); Sodium 140 mmol/L (137-145); Total Protein 7.8 g/dL (6.3-8.2)
[2021-09-16 23:08] LABS: Aspartate Aminotransferase 41 IU/L (14-36); HEMOLYSIS 58 (0-50)
[2021-09-16 23:09] LABS: Potassium 4.2 mmol/L (3.4-5.1)
[2021-09-16 23:13] LABS: Troponin I < 0.012 ng/mL (0.01-0.034)
[2021-09-16] MEDS: NITROGLYCERIN 0.4 MG SL TAB SL (23:33)
[2021-09-17] VITALS (9 sets, daily range): BP systolic 99–110; BP diastolic 54–77; PULSE 55–67; RESP 13–41; O2SAT 91–99
[2021-09-17] MEDS: MAG HYDROX/ALUMINUM/SIMETH SUS 20 ML, LIDOCAINE VISCOUS 2% 15 ML PO (00:48)
[2021-09-17] MEDS: PANTOPRAZOLE 40 MG VIAL IV (00:55)
--- NOTE | 2021-09-17 01:11 | DI.US.S_ITS ---
PROCEDURE: US ABDOMEN LIMITED INDICATIONS: epigastric pain, radiation to the back TECHNIQUE: Real-time focused scanning was performed of the abdomen, with image documentation. COMPARISON: None. FINDINGS: Liver is normal in size and homogeneous in echotexture. Gallbladder is sonographically normal. No gallstones. No gallbladder wall thickening. No pericholecystic fluid. No sonographic Nina sign. Biliary tree is nondilated. Common bile duct measures 4.1 millimeters. Pancreas obscured by bowel gas. IMPRESSION: No sonographic evidence of cholelithiasis or cholecystitis. If there is continued clinical concern for cholecystitis, a nuclear medicine HIDA scan should be considered for further evaluation. Dictated by: Martha Wilson MD, PhD on 09/17/2021 at 9:11 Approved by: Martha Wilson MD, PhD on 09/17/2021 at 9:12
[2021-09-17 01:16] LABS: D Dimer 297 ng/mL (<230)
[2021-09-17 02:00] LABS: Creatine Kinase 57 U/L (30-135)
[2021-09-17 02:12] LABS: Troponin I < 0.012 ng/mL (0.01-0.034)
== END 2021-09-17 02:40 | disposition home or self-care (01) ==
PROVIDERS: Emergency Provider Emergency Medicine; PCP Family Medicine
DX: R10.13 Epigastric pain (principal); R07.9 Chest pain, unspecified
CPT/HCPCS: 71045; 76705; 80053; 82550; 82553; 83690; 83735; 84484; 85025; 85379; 93005; 96374; 99284; C9113

== ENCOUNTER → 2022-02-11 08:50 | Outpatient (CLI) | payer BC, SELFPAY ==
[2022-02-11 09:51] LABS: Hematocrit 38.5 % (36-46); Hemoglobin 12.9 g/dL (12.0-16.0); Mean Corpuscular HGB Conc 33.4 % (30-36); Mean Corpuscular Hemoglobin 31.9 PG (26-34); Mean Corpuscular Volume 95.5 fL (80-100); Platelet Count 287 X10^3/uL (150-400); Red Blood Cell Count 4.03 X10^6/uL (4.0-5.2); Red Cell Distribution Width 12.7 % (11.6-14.8); White Blood Cell Count 5.4 X10^3/uL (4.5-11.0)
[2022-02-11 10:03] LABS: Alanine Aminotransferase 26 IU/L (<35); Albumin 4.1 g/dL (3.5-5.0); Albumin Globulin Ratio 1.3 (1.0-2.8); Alkaline Phosphatase 52 U/L (38-126); Aspartate Aminotransferase 30 IU/L (14-36); BUN Creatinine Ratio 11.6 (6-22); Bilirubin Total 0.4 mg/dL (0.2-1.3); Blood Urea Nitrogen 11 mg/dL (7-17); Carbon Dioxide 31 mmol/L (22-32); Chloride 103 mmol/L (98-107); Cholesterol 163 mg/dL (140-199); Estimated Glomerular Filt Rate > 60 mL/min (>60); Globulin 3.1 g/dL (1.7-4.1); Glucose 87 mg/dL (80-110); HDL Cholesterol 59 mg/dL (40-60); HEMOLYSIS < 15 (0-50); LDL Cholesterol Calculated 88 mg/dL (<100); Potassium 4.1 mmol/L (3.4-5.1); Sodium 140 mmol/L (137-145); Total Protein 7.2 g/dL (6.3-8.2); Triglycerides 81 mg/dL (35-150)
[2022-02-11 11:00] LABS: TSH w/ Reflex to FT4 2.22 uIU/mL (0.47-4.68)
== END ==
PROVIDERS: PCP Registered Nurse Diabetes Educator; Referring Provider Registered Nurse Diabetes Educator; Visit Provider Registered Nurse Diabetes Educator
DX: E78.2 Mixed hyperlipidemia (principal)
CPT/HCPCS: 36415; 80053; 80061; 84443; 85027

== ENCOUNTER → 2022-02-19 12:01 | Outpatient (CLI) | payer BC, SELFPAY ==
--- NOTE | 2022-02-19 12:02 | DI.MG.S_ITS ---
BILATERAL DIGITAL DIAGNOSTIC MAMMOGRAM 3D/2D: 02/19/2022 CLINICAL: Short term follow up of the left breast, due for bilateral imaging. Comparison is made to exams dated: 02/14/2021 mammogram, 08/22/2020 mammogram, 02/27/2020 mammogram, and 03/10/2019 mammogram - [facility]. Both breasts are heterogeneously dense, which may obscure small masses (category c / 51-75% glandular tissue). There is an oval low density focal asymmetry in the left breast at 12 o'clock middle depth. This is less prominent and was not seen on the prior ultrasound. There also is a stable benign oval cyst in the left breast central to the nipple middle depth. No other significant masses, calcifications, or other findings are seen in either breast. IMPRESSION: BENIGN The oval low density focal asymmetry in the left breast at 12 o'clock middle depth resembles fibroglandular tissue which has demonstrated two years of stability and is consistent with a benign process. There is no mammographic evidence of malignancy. Return to annual mammogram screening schedule is recommended. Based on the Tyrer Cuzick model (a risk assessment model) the patient's lifetime risk is 12.6% and her 10 year risk is 5.5%. According to the ACR, ACS, and NCCN guidelines, an annual breast MRI exam along with mammogram is recommended if the patient's lifetime risk is 20% or greater. Findings and recommendations were conveyed to the patient during today's evaluation. This exam was interpreted at Station ID: [id number]. NOTE: For mammograms, a report in lay terms will be sent to the patient. Approximately 15% of breast malignancies will not be visualized mammographically. In the management of a palpable breast mass, a negative mammogram must not discourage biopsy of a clinically suspicious lesion. Electronically Signed By: Juanjose Stern M.D. aty/:02/20/2022 07:01:11 letter sent: Normal Exam ACR BI-RADS Category 2: Benign Finding(s) 3342F
== END ==
PROVIDERS: PCP Registered Nurse Diabetes Educator; Referring Provider Nurse Practitioner Family; Visit Provider Nurse Practitioner Family
DX: R92.8 Other abnormal and inconclusive findings on diagnostic imaging of breast (principal); N64.89 Other specified disorders of breast
CPT/HCPCS: 77066; G0279

== ENCOUNTER → 2022-05-08 11:29 | Outpatient (CLI) | payer BC, SELFPAY ==
[2022-05-08 13:51] LABS: COVID19 -Nasal RAPID Negative (Negative)
== END ==
PROVIDERS: PCP Registered Nurse Diabetes Educator; Visit Provider Surgery
DX: Z01.812 Encounter for preprocedural laboratory examination (principal); Z20.822 Contact with and (suspected) exposure to COVID-19
CPT/HCPCS: 87635; C9803

== ENCOUNTER → 2022-05-09 14:47 | Outpatient (CLI) | payer BC, SELFPAY ==
--- NOTE | 2022-05-09 14:48 | DI.RAD.S_ITS ---
PROCEDURE: XR FOOT RT 2V INDICATIONS: Right foot and ankle injury TECHNIQUE: 3 views of the foot were acquired. COMPARISON: [facility], CR, XR ANKLE RT MIN 3V, 05/09/2022, 14:47. FINDINGS: Bones: No fractures or dislocations. No suspicious bony lesions. Degenerative changes are seen, which are worst along the 1st ray. Soft tissues: No tibiotalar joint effusion. Achilles tendon appears normal. IMPRESSION: Degenerative changes, without a significant abnormality of the foot seen by plain film. Dictated by: Yvon Whitt M.D. on 05/09/2022 at 14:17 Approved by: Yvon Whitt M.D. on 05/09/2022 at 14:18
--- NOTE | 2022-05-09 14:48 | DI.RAD.S_ITS ---
PROCEDURE: XR ANKLE RT MIN 3V INDICATIONS: Right foot and ankle injury TECHNIQUE: 3 views of the ankle were acquired. COMPARISON: [facility], CR, XR FOOT RT 2V, 05/09/2022, 14:47. [facility], CR, XR ANKLE LT MIN 3V, 01/25/2020, 14:53. FINDINGS: Bones: There are avulsion fracture fragments seen along the inferior aspect of the lateral malleolus. No additional fractures are detected. Soft tissues: Soft tissue swelling is seen laterally. IMPRESSION: Levels are fracture fragments are seen along the inferior aspect of the lateral malleolus, with associated soft tissue swelling. Dictated by: Yvon Whitt M.D. on 05/09/2022 at 14:15 Approved by: Yvon Whitt M.D. on 05/09/2022 at 14:17
== END ==
PROVIDERS: PCP Registered Nurse Diabetes Educator; Referring Provider Registered Nurse; Visit Provider Registered Nurse
DX: S82.61XA Displaced fracture of lateral malleolus of right fibula, initial encounter for closed fracture (principal); M25.571 Pain in right ankle and joints of right foot; M79.89 Other specified soft tissue disorders
CPT/HCPCS: 73610; 73620

== ENCOUNTER 2022-05-11 06:41 | Day surgery (SDC) | payer BC, SELFPAY ==
--- NOTE | 2022-05-11 | PATH_ITS ---
[facility] Accession Number: [id number] No. of containers..01 Tissue . 01 Material submitted: . stomach - ANTRUM . 01 Diagnosis: Stomach, Antrum, Biopsy: Acute erosive gastritis. No evidence of Helicobacter on H/E stain. Negative for intestinal metaplasia. Negative for dysplasia and malignancy. . MRV 05/13/2022 1036 Local . 01 Electronically signed: . Margaret Grewal MD, Pathologist NPI- [id number] . 01 Gross description: . ANTRUM: Received in formalin are 2 fragment(s) of tran, soft tissue measuring 0.3 x 0.1 x 0.1 cm to 0.2 x 0.1 x 0.1 cm submitted entirely in 1 cassette(s) /CPE 05/12/2022 0534 Local . 01 Pathologist provided ICD-10: K25.9 . 01 CPT . 864330 Specimen Comment: A courtesy copy of this report has been sent to [phone] Performed at: 01 [facility] [address] [place] [address], [place], [place] [id number] MD Junito Garvey MD Phone: [phone]
[2022-05-11 07:27] VITALS: BP 96/72; PULSE 72; RESP 16; TEMP 36.4; O2SAT 97; BMI 27.4
[2022-05-11] MEDS: LACTATED RINGERS 1,000 ML 42 ML IV (07:36)
--- NOTE | 2022-05-11 07:59 | PM.HP.1 ---
History of Present Illness History of Present Illness Date Patient Seen: 05/11/22 Time Patient Seen: 07:59 Chief complaint: SDC Narrative: Doing very well on b.i.d. PPI no dysphagia. I reviewed the recent EUS. 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) Osteoporosis (05/2019) Panic attacks Postmenopausal atrophic vaginitis Restless leg syndrome Restless leg syndrome Vertigo Surgical History History of ankle surgery History of breast biopsy Hx of section Family & Social History Family History Grandmother Breast cancer Grandfather Bladder cancer Mother Osteopenia Grandfather Diabetes mellitus Grandmother Diabetes mellitus Social History: household members spouse,children Tobacco & Substance use: Smoking Status Never smoker alcohol intake current alcohol intake frequency a few times a month Substance Use Type does not use Meds Home Medications and Allergies Home Medications Medication Instructions Recorded Confirmed Type budesonide-formoterol HFA 160 2 puff inhalation ONCE PRN 12/02/18 05/11/22 Rx mcg-4.5 mcg/actuation aerosol seasonal #10.2 grams inhaler (Symbicort) cholecalciferol (vitamin D3) 50 50 mcg PO DAILY 09/04/20 05/11/22 History mcg (2,000 unit) capsule multivitamin 1 tab PO DAILY 09/04/20 05/11/22 History omeprazole 20 mg capsule,delayed 20 mg PO DAILY PRN reflux #90 caps 09/25/21 05/11/22 Rx release albuterol sulfate 90 mcg/actuation 1 puff inhalation Q4-6H PRN 02/24/22 05/11/22 Rx aerosol inhaler (Ventolin HFA) shortness of breath or wheezing #18 grams alendronate 70 mg tablet See Rx Instructions .Route 02/24/22 05/11/22 Rx .COMPLEX #12 tabs atorvastatin 20 mg tablet See Rx Instructions .Route 02/24/22 05/11/22 Rx .COMPLEX #90 tabs citalopram 20 mg tablet 10 mg PO DAILY #90 tabs 02/24/22 05/11/22 Rx ibuprofen 100 mg tablet 200 mg PO Q6H 05/11/22 05/11/22 History Allergies Allergy/AdvReac Type Severity Reaction Status Date / Time kiwi Allergy Severe Anaphylaxis Verified 05/11/22 07:22 amoxicillin Allergy Intermediate Rash Verified 05/11/22 07:22 oxycodone [From Percocet] Allergy Intermediate Rash Verified 05/11/22 07:22 Penicillins Allergy Intermediate Rash Verified 05/11/22 07:22 Review of Systems Review of Systems ROS: Yes All systems reviewed with the patient and are negative except as otherwise documented Exam Vital Signs (past 8 hours): - 05/11/22 07:27 Temperature 97.6 F Pulse Rate 72 Respiratory Rate 16 Blood Pressure 96/72 Pulse Oximetry 97 Oxygen Delivery Method Room Air Oxygen Delivery Method Room Air Const General: cooperative HENMT Head: normal to inspection Eyes General: appearance normal, both eyes and all related structures Neck Neck: normal visual inspection Chest Chest: normal inspection of the chest Resp Effort & Inspection: normal respiratory effort Cardio Rate: regular rate GI Inspection: normal to inspection Skin General: no rashes or lesions noted Neuro General: patient alert and patient awake Extrem General: normal to inspection and no pedal edema Psych Appearance: grossly normal Assessment & Plan Assessment & Plan narrative: 61-year-old female with history of LA grade D erosive esophagitis and possible stenosis. She is here for follow-up EGD today. Time Spent With Patient Critical Care time: I spent a total of [] minutes of critical care time on this patient's care today; this time is exclusive of procedural time.
--- NOTE | 2022-05-11 08:01 | PM.PREOP ---
Pre-operative Note COVID-19 COVID-19 status: Negative Result date/Date tested (Pos, Neg/Pending): 05/08/22 Criteria for continued procedure: Possibility delay results in more complex future surgery or treatment Interval Note History & Physical reviewed/Exam performed by Physician: Yes Changes to H&P: Yes ASA Class (for procedural sedation): II
--- NOTE | 2022-05-11 08:13 | PM.OP.EGD ---
Operative Date/Time/Diagnoses Date of procedure: 05/11/22 Time of procedure: 08:14 Pre-op diagnosis: Esophagitis and possible stenosis Post-op diagnosis: same Procedure & Clinicians Study performed: EGD with biopsies Same procedure as scheduled: Yes Indications: Esophagitis and possible stenosis Surgeon: Andre Hill Procedure Notes SCOAP/Timeout: Done Procedure in detail: After the risks and benefits were explained, written and verbal informed consent was obtained. The patient was brought into the procedure room and placed into the left lateral decubitus position. Please see anesthesia note for sedation details. The scope was introduced into the mouth through the bite block and advanced under direct visualization to the 2nd portion of the duodenum. The scope was slowly withdrawn carefully examining the mucosa for any defects or lesions. Retroflexed views were accomplished in the stomach. The stomach was decompressed, the scope was then removed from the patient who tolerated the procedure well. Sedation minutes: 6 Complications: none Impression: 1. Duodenum: This was visually unremarkable from the bulb through to the 2nd portion. The corner from D1 to D2 was fairly sharply angulated. 2. Stomach: Patient had an erosive gastropathy throughout the antrum. Biopsies were acquired for exclusion of H pylori or other pathology. No outlet obstruction no mass lesions. Retroflexed views of the LES disclosed a sliding hiatal hernia. 3. Esophagus: The squamocolumnar junction correlated with the top of the gastric folds. The GE junction was at about 30 cm from the incisors. The diaphragmatic pinchcock was at approximately 33 cm from the incisors. All prior esophagitis appears to have healed. I did not appreciate any obvious Schatzki's ring or stricture. The distal esophagus was slightly tortuous. Endoscopic diagnosis 1. 3 cm hiatal hernia 2. Healed esophagitis 3. Erosive gastropathy Post-procedure Plan for aftercare: 1. Await histopathology. 2. Based on the appearance of the esophagus, it would be perfectly reasonable to reduce omeprazole down to once daily therapy. Disposition: PACU
[2022-05-11 08:15] VITALS: BP 98/52; PULSE 68; RESP 16; TEMP 36.4; O2SAT 98
[2022-05-11 08:20] VITALS: BP 95/47; PULSE 65; RESP 16; O2SAT 98
[2022-05-11 08:30] VITALS: BP 98/66; PULSE 80; RESP 16; TEMP 36.4; O2SAT 99
== END 2022-05-11 08:34 | disposition home or self-care (01) ==
PROVIDERS: PCP Registered Nurse Diabetes Educator; Referring Provider Internal Medicine Gastroenterology; Visit Provider Internal Medicine Gastroenterology
PROC: 0DJ08ZZ Inspection of Upper Intestinal Tract, Via Natural or Artificial Opening Endoscopic (ICD-10-PCS; CPT 43235; principal; 2022-05-11 08:00)
DX: K29.00 Acute gastritis without bleeding (principal); Z87.19 Personal history of other diseases of the digestive system; K44.9 Diaphragmatic hernia without obstruction or gangrene
CPT/HCPCS: 43239; J2704; J3010

== ENCOUNTER → 2023-02-11 09:48 | Outpatient (CLI) | payer BC, SELFPAY ==
[2023-02-11 12:01] LABS: Hematocrit 35.7 % (36-46); Hemoglobin 12.3 g/dL (12.0-16.0); Mean Corpuscular HGB Conc 34.3 % (30-36); Mean Corpuscular Hemoglobin 32.6 PG (26-34); Platelet Count 277 X10^3/uL (150-400); Red Blood Cell Count 3.76 X10^6/uL (4.0-5.2); Red Cell Distribution Width 12.3 % (11.6-14.8); White Blood Cell Count 5.7 X10^3/uL (4.5-11.0)
[2023-02-11 12:19] LABS: Alanine Aminotransferase 24 IU/L (<35); Albumin 3.8 g/dL (3.5-5.0); Albumin Globulin Ratio 1.3 (1.0-2.8); Alkaline Phosphatase 54 U/L (38-126); Aspartate Aminotransferase 31 IU/L (14-36); BUN Creatinine Ratio 14.1 (6-22); Bilirubin Total 0.3 mg/dL (0.2-1.3); Blood Urea Nitrogen 13 mg/dL (7-17); Calcium 9.4 mg/dL (8.4-10.2); Carbon Dioxide 28 mmol/L (22-32); Chloride 104 mmol/L (98-107); Cholesterol 157 mg/dL (140-199); Estimated Glomerular Filt Rate > 60 mL/min (>60); Glucose 93 mg/dL (80-110); HDL Cholesterol 58 mg/dL (40-60); HEMOLYSIS < 15 (0-50); LDL Cholesterol Calculated 83 mg/dL (<100); Potassium 3.9 mmol/L (3.4-5.1); Sodium 140 mmol/L (137-145); Total Protein 6.8 g/dL (6.3-8.2); Triglycerides 78 mg/dL (35-150)
== END ==
PROVIDERS: PCP Registered Nurse Diabetes Educator; Referring Provider Registered Nurse Diabetes Educator; Visit Provider Registered Nurse Diabetes Educator
DX: Z00.00 Encounter for general adult medical examination without abnormal findings (principal); E78.2 Mixed hyperlipidemia
CPT/HCPCS: 36415; 80053; 80061; 85027

== ENCOUNTER → 2023-02-22 11:01 | Outpatient (CLI) | payer BC, SELFPAY ==
--- NOTE | 2023-02-22 | DI.MG.S_ITS ---
BILATERAL DIGITAL SCREENING MAMMOGRAM 3D/2D WITH CAD: 02/22/2023 CLINICAL: Routine screening. Comparison is made to exams dated: 02/19/2022 mammogram, 02/14/2021 mammogram, 02/27/2020 mammogram, 03/10/2019 mammogram, and 09/07/2018 mammogram - [facility]. There are scattered areas of fibroglandular density in both breasts (category b / 25%-50% glandular tissue). Current study was also evaluated with a Computer Aided Detection (CAD) system. No significant masses, calcifications, or other findings are seen in either breast. There has been no significant interval change. IMPRESSION: NEGATIVE There is no mammographic evidence of malignancy. A 1 year screening mammogram is recommended. Based on the Tyrer Cuzick model (a risk assessment model) the patient's lifetime risk is 8.2% and her 10 year risk is 3.7%. According to the ACR, ACS, and NCCN guidelines, an annual breast MRI exam along with mammogram is recommended if the patient's lifetime risk is 20% or greater. This exam was interpreted at Station ID: [id number]. NOTE: For mammograms, a report in lay terms will be sent to the patient. Approximately 15% of breast malignancies will not be visualized mammographically. In the management of a palpable breast mass, a negative mammogram must not discourage biopsy of a clinically suspicious lesion. Electronically Signed By: Hung nix/ifeoma:02/22/2023 13:17:38 letter sent: Normal Exam ACR BI-RADS Category 1: Negative [id number]
== END ==
PROVIDERS: PCP Registered Nurse Diabetes Educator; Referring Provider Registered Nurse Diabetes Educator; Visit Provider Registered Nurse Diabetes Educator
DX: Z12.31 Encounter for screening mammogram for malignant neoplasm of breast (principal)
CPT/HCPCS: 77063; 77067

== ENCOUNTER → 2023-05-15 10:25 | Outpatient (CLI) | payer BC, SELFPAY | PROVIDERS: PCP Registered Nurse Diabetes Educator; Visit Provider Physician Assistant | DX: R30.0 Dysuria (principal) | CPT/HCPCS: 87086 ==

== ENCOUNTER → 2023-05-17 12:54 | Outpatient (CLI) | payer BC, SELFPAY ==
[2023-05-17 13:47] LABS: Add Manual Diff / Slide Review NO; Basophils Absolute Auto 0 /uL (0-100); Basophils Percent Auto 0.7 % (0-2); Eosinophils Absolute Auto 200 /uL (0-450); Eosinophils Percent Auto 4.2 % (2-4); Hematocrit 34.3 % (36-46); Hemoglobin 11.7 g/dL (12.0-16.0); Lymphocytes Absolute Auto 1500 /uL (1100-4500); Mean Corpuscular HGB Conc 34.3 % (30-36); Mean Corpuscular Hemoglobin 32.3 PG (26-34); Mean Corpuscular Volume 94.3 fL (80-100); Monocytes Absolute Auto 300 /uL (0-900); Monocytes Percent Auto 6.1 % (3-14); Neutrophils Absolute Auto 3500 /uL (1500-7000); Platelet Count 284 X10^3/uL (150-400); Red Blood Cell Count 3.64 X10^6/uL (4.0-5.2); Red Cell Distribution Width 12.3 % (11.6-14.8); White Blood Cell Count 5.7 X10^3/uL (4.5-11.0)
[2023-05-17 14:00] LABS: HEMOLYSIS < 15 (0-50); Iron 103 ug/dL (37-170)
[2023-05-17 14:14] LABS: Percent Iron Saturation 39 % (15-50); Total Iron Binding Capacity 263 ug/dL (265-497); Transferrin 223 mg/dL (206-381)
[2023-05-17 14:34] LABS: Ferritin 42 ng/mL (11-264)
[2023-05-17 14:48] LABS: Vitamin B12 Reflex MMA if <400 681 pg/mL (239-931)
== END ==
PROVIDERS: PCP Registered Nurse Diabetes Educator; Referring Provider Registered Nurse Diabetes Educator; Visit Provider Registered Nurse Diabetes Educator
DX: D64.9 Anemia, unspecified (principal)
CPT/HCPCS: 36415; 82607; 82728; 83540; 83550; 85025

== ENCOUNTER → 2023-05-21 12:35 | Outpatient (CLI) | payer BC, SELFPAY ==
[2023-05-21 13:06] LABS: Add Manual Diff / Slide Review NO; Basophils Absolute Auto 100 /uL (0-100); Basophils Percent Auto 0.9 % (0-2); Eosinophils Absolute Auto 200 /uL (0-450); Eosinophils Percent Auto 2.8 % (2-4); Hematocrit 34.4 % (36-46); Lymphocytes Absolute Auto 1500 /uL (1100-4500); Lymphocytes Percent Auto 17.3 % (25-40); Mean Corpuscular HGB Conc 34.9 % (30-36); Mean Corpuscular Hemoglobin 32.8 PG (26-34); Mean Corpuscular Volume 93.9 fL (80-100); Monocytes Absolute Auto 700 /uL (0-900); Monocytes Percent Auto 7.8 % (3-14); Neutrophils Absolute Auto 6200 /uL (1500-7000); Neutrophils Percent Auto 71.2 % (50-75); Platelet Count 345 X10^3/uL (150-400); Red Blood Cell Count 3.66 X10^6/uL (4.0-5.2); Red Cell Distribution Width 12.1 % (11.6-14.8); White Blood Cell Count 8.7 X10^3/uL (4.5-11.0)
[2023-05-21 13:13] LABS: Reticulocyte Count, Percent 1.4 % (1.1-2.6)
[2023-05-21 13:38] LABS: Alanine Aminotransferase 23 IU/L (<35); Albumin Globulin Ratio 1.2 (1.0-2.8); Alkaline Phosphatase 54 U/L (38-126); Aspartate Aminotransferase 29 IU/L (14-36); BUN Creatinine Ratio 14.5 (6-22); Bilirubin Total 0.5 mg/dL (0.2-1.3); Blood Urea Nitrogen 12 mg/dL (7-17); C-Reactive Protein Quant 0.6 mg/dL (<1.0); Calcium 9.5 mg/dL (8.4-10.2); Carbon Dioxide 25 mmol/L (22-32); Chloride 105 mmol/L (98-107); Estimated Glomerular Filt Rate > 60 mL/min (>60); Globulin 3.3 g/dL (1.7-4.1); Glucose 97 mg/dL (80-110); HEMOLYSIS < 15 (0-50); Sodium 138 mmol/L (137-145); Total Protein 7.3 g/dL (6.3-8.2)
[2023-05-21 14:07] LABS: TSH w/ Reflex to FT4 2.88 uIU/mL (0.47-4.68)
[2023-05-21 14:40] LABS: Folate > 20.0 ng/mL (2.76-20.0)
== END ==
PROVIDERS: PCP Registered Nurse Diabetes Educator; Referring Provider Registered Nurse Diabetes Educator; Visit Provider Registered Nurse Diabetes Educator
DX: D64.9 Anemia, unspecified (principal)
CPT/HCPCS: 36415; 80053; 82525; 82746; 84443; 85025; 85045; 86140

== ENCOUNTER → 2023-05-24 14:58 | Outpatient (CLI) | payer BC, SELFPAY ==
[2023-05-24 17:05] LABS: Occult Blood 1 Negative (Negative)
[2023-05-24 19:57] LABS: Occult Blood 2 Negative (Negative); Occult Blood 3 Negative (Negative)
== END ==
PROVIDERS: PCP Registered Nurse Diabetes Educator; Referring Provider Registered Nurse Diabetes Educator; Visit Provider Registered Nurse Diabetes Educator
DX: D64.9 Anemia, unspecified (principal)
CPT/HCPCS: 82270

== ENCOUNTER → 2023-10-04 10:51 | Outpatient (CLI) | payer BC, SELFPAY ==
--- NOTE | 2023-10-04 11:00 | DI.RAD.S_ITS ---
PROCEDURE: XR DEXA AXIAL SKELETON INDICATIONS: reeval COMPARISON: [facility], [place], XR DEXA AXIAL SKELETON, 08/27/2021, 11:45. FINDINGS: Lumbar Spine: Bone mineral density 0.783 g/cm2, T score -2.4. Left Hip: Bone mineral density 0.812 g/cm2, T score -1.1. Left Femoral Neck: Bone mineral density 0.672 g/cm2, T score -1.6. Right Hip: Bone mineral density 0.860 g/cm2, T score -0.7. Right Femoral Neck: Bone mineral density 0.780 g/cm2, T score -0.6. Fracture Risk Calculation (when applicable): 10-year fracture risk of a major osteoporotic fracture 8.7% and of a hip fracture 0.9%. (T score greater or equal to -1.0 to: NORMAL) (T score from -1.1 to -2.4: OSTEOPENIA) (T score less than or equal to -2.5: OSTEOPOROSIS) IMPRESSION: Osteopenia. Follow-up guidelines as follows: Osteoporosis: Consider a repeat DEXA and Vertebral Fracture Assessment (VFA) exam in 2 years or sooner if medically necessary, to reassess this patient's status. Osteopenia: Consider a repeat DEXA in 2-3 years to reassess this patient's status, or if there is a new clinical indication. Normal: Consider a repeat DEXA in 5 years or sooner, or if there is a new clinical indication. All treatment decisions require clinical judgment and consideration of individual patient factors, including patient preferences, comorbidities, previous drug use, risk factors not captured in the FRAX model (e.g., frailty, falls, vitamin D deficiency, increased bone turnover, interval significant decline in bone density ) and possible under- or over-estimation of fracture risk by FRAX. In addition, the NOF Guide recommends that FDA-approved medical therapies be considered in postmenopausal women and men age >= 50 years with a: * Hip or vertebral (clinical or morphometric) fracture * T-score of <=-2.5 at the spine or hip * Ten-year fracture probability by FRAX of >= 3% for hip fracture or >=20% for major osteoporotic fracture. People with diagnosed cases of osteoporosis or at high risk for fracture should have regular bone mineral density tests. For patients eligible for Medicare, routine testing is allowed once every 2 years. The testing frequency can be increased to one year for patients who have rapidly progressing disease, those who are receiving or discontinuing medical therapy to restore bone mass, or have additional risk factors. Dictated by: uHng Aguilar M.D. on 10/04/2023 at 17:29 Approved by: Hung Aguilar M.D. on 10/04/2023 at 17:31
== END ==
PROVIDERS: PCP Registered Nurse Diabetes Educator; Referring Provider Registered Nurse Diabetes Educator; Visit Provider Registered Nurse Diabetes Educator
DX: M81.0 Age-related osteoporosis without current pathological fracture (principal)
CPT/HCPCS: 77080

== ENCOUNTER → 2023-10-20 08:06 | Outpatient (CLI) | payer BC, SELFPAY ==
[2023-10-20 08:39] LABS: Add Manual Diff / Slide Review NO; Basophils Absolute Auto 100 /uL (0-100); Basophils Percent Auto 0.8 % (0-2); Eosinophils Absolute Auto 400 /uL (0-450); Eosinophils Percent Auto 5.4 % (2-4); Hematocrit 36.2 % (36-46); Hemoglobin 12.2 g/dL (12.0-16.0); Lymphocytes Absolute Auto 1600 /uL (1100-4500); Lymphocytes Percent Auto 24.1 % (25-40); Mean Corpuscular HGB Conc 33.8 % (30-36); Mean Corpuscular Hemoglobin 31.8 PG (26-34); Monocytes Absolute Auto 500 /uL (0-900); Neutrophils Absolute Auto 4200 /uL (1500-7000); Neutrophils Percent Auto 62.7 % (50-75); Platelet Count 269 X10^3/uL (150-400); Red Blood Cell Count 3.85 X10^6/uL (4.0-5.2); Red Cell Distribution Width 12.6 % (11.6-14.8); White Blood Cell Count 6.7 X10^3/uL (4.5-11.0)
[2023-10-20 09:25] LABS: Alanine Aminotransferase 20 IU/L (<35); Albumin 3.8 g/dL (3.5-5.0); Albumin Globulin Ratio 1.4 (1.0-2.8); Alkaline Phosphatase 50 U/L (38-126); Aspartate Aminotransferase 25 IU/L (14-36); BUN Creatinine Ratio 13.5 (6-22); Bilirubin Total 0.5 mg/dL (0.2-1.3); Blood Urea Nitrogen 12 mg/dL (7-17); Calcium 8.8 mg/dL (8.4-10.2); Carbon Dioxide 29 mmol/L (22-32); Chloride 110 mmol/L (98-107); Cholesterol 158 mg/dL (140-199); Estimated Glomerular Filt Rate > 60 mL/min (>60); Globulin 2.8 g/dL (1.7-4.1); Glucose 95 mg/dL (80-110); HDL Cholesterol 69 mg/dL (40-60); HEMOLYSIS < 15 (0-50); LDL Cholesterol Calculated 73 mg/dL (<100); Sodium 139 mmol/L (137-145); Total Protein 6.6 g/dL (6.3-8.2); Triglycerides 82 mg/dL (35-150)
[2023-10-20 09:43] LABS: Vitamin D 25 Hydroxy (D3) 78.3 ng/mL (30.0-100.0)
== END ==
LOC: LAB 08:07
PROVIDERS: PCP Registered Nurse Diabetes Educator; Referring Provider Registered Nurse Diabetes Educator; Visit Provider Registered Nurse Diabetes Educator
DX: M81.0 Age-related osteoporosis without current pathological fracture (principal); E78.5 Hyperlipidemia, unspecified; D64.9 Anemia, unspecified
CPT/HCPCS: 36415; 80053; 80061; 82306; 85025

== ENCOUNTER → 2024-02-24 11:38 | Outpatient (CLI) | payer BC, SELFPAY ==
--- NOTE | 2024-02-24 11:39 | DI.MG.S_ITS ---
BILATERAL DIGITAL SCREENING MAMMOGRAM 3D/2D WITH CAD: 02/24/2024 CLINICAL: Routine screening. Family history of breast cancer. Comparison is made to exams dated: 02/22/2023 mammogram, 02/19/2022 mammogram, and 02/14/2021 mammogram - [facility]. There are scattered areas of fibroglandular density (category b / 25%-50% glandular tissue). Current study was also evaluated with a Computer Aided Detection (CAD) system. No significant masses, calcifications, or other findings are seen in either breast. There has been no significant interval change. IMPRESSION: NEGATIVE There is no mammographic evidence of malignancy. A 1 year screening mammogram is recommended. Based on the Tyrer Cuzick model (a risk assessment model) the patient's lifetime risk is 7.9% and her 10 year risk is 3.7%. According to the ACR, ACS, and NCCN guidelines, an annual breast MRI exam along with mammogram is recommended if the patient's lifetime risk is 20% or greater. This exam was interpreted at Station ID: [id number]. NOTE: For mammograms, a report in lay terms will be sent to the patient. Approximately 15% of breast malignancies will not be visualized mammographically. In the management of a palpable breast mass, a negative mammogram must not discourage biopsy of a clinically suspicious lesion. Electronically Signed By: Hung nix/ifeoma:02/24/2024 18:55:33 letter sent: Normal Exam ACR BI-RADS Category 1: Negative
== END ==
PROVIDERS: PCP Registered Nurse Diabetes Educator; Referring Provider Registered Nurse Diabetes Educator; Visit Provider Registered Nurse Diabetes Educator
DX: Z12.31 Encounter for screening mammogram for malignant neoplasm of breast (principal); Z80.3 Family history of malignant neoplasm of breast
CPT/HCPCS: 77063; 77067

== ENCOUNTER → 2024-03-17 17:55 | Outpatient (CLI) | payer BC, SELFPAY ==
--- NOTE | 2024-03-17 17:56 | DI.RAD.S_ITS ---
PROCEDURE: XR CLAVICLE LT INDICATIONS: Ground level fall TECHNIQUE: 2 views of the clavicle were acquired. COMPARISON: None. FINDINGS: Bones: [id number] acromioclavicular joint space narrowing. No acute displaced fracture. CC interval is within normal limits. Soft tissues: No suspicious calcifications. IMPRESSION: No acute radiographic abnormality. Background degenerative changes. If there is high concern for occult injury, consider repeat radiography or cross-sectional imaging. Dictated by: Eriberto Hyde M.D. on 03/18/2024 at 17:39 Approved by: Eriberto Hyde M.D. on 03/18/2024 at 17:40
--- NOTE | 2024-03-17 17:56 | DI.RAD.S_ITS ---
PROCEDURE: XR WRIST LT MIN 3V INDICATIONS: Ground level fall TECHNIQUE: 4 views of the wrist were acquired. COMPARISON: None. FINDINGS: Bones: Kecd-nw-iyghnhat degenerative changes especially at the STT and 1st CMC joints. No acute displaced fracture or dislocation. Soft tissues: No suspicious calcifications. IMPRESSION: [id number]-lvsgqyzl arthrosis. No acute radiographic abnormality. If there is high concern for occult injury, consider repeat radiography or cross-sectional imaging. Dictated by: Eriberto Hyde M.D. on 03/18/2024 at 17:40 Approved by: Eriberto Hyde M.D. on 03/18/2024 at 17:41
== END ==
LOC: RAD 17:56
PROVIDERS: PCP Registered Nurse Diabetes Educator; Referring Provider Nurse Practitioner Family; Visit Provider Nurse Practitioner Family
DX: S49.92XA Unspecified injury of left shoulder and upper arm, initial encounter (principal); S69.92XA Unspecified injury of left wrist, hand and finger(s), initial encounter; W19.XXXA Unspecified fall, initial encounter
CPT/HCPCS: 73000; 73110

== ENCOUNTER → 2024-03-27 08:37 | Outpatient (CLI) | payer BC, SELFPAY ==
--- NOTE | 2024-03-27 08:39 | DI.RAD.S_ITS ---
PROCEDURE: XR CLAVICLE LT INDICATIONS: FU to initial XRs for fall/arm injury TECHNIQUE: 2 views of the clavicle were acquired. COMPARISON: [facility], [place], XR CLAVICLE LT, 03/17/2024, 18:07. FINDINGS: Bones: No fractures identified. No periosteal reaction is seen. Mild degenerative changes. No dislocations. No suspicious bony lesions. Soft tissues: No suspicious soft tissue calcifications. IMPRESSION: No fracture identified. CT or MRI could be considered for further evaluation. Dictated by: Hung Aguilar M.D. on 03/27/2024 at 16:51 Approved by: Hung Aguilar M.D. on 03/27/2024 at 16:54
--- NOTE | 2024-03-27 08:39 | DI.RAD.S_ITS ---
PROCEDURE: XR WRIST LT MIN 3V INDICATIONS: FU to initial XRs for fall/arm injury TECHNIQUE: 4 views of the wrist were acquired. COMPARISON: [facility], [place], XR WRIST LT MIN 3V, 03/17/2024, 18:11. FINDINGS: Bones: No fractures or dislocations. No periosteal reaction. Mild degenerative changes. No suspicious bony lesions. Soft tissues: No suspicious soft tissue calcifications. IMPRESSION: No fracture demonstrated. Dictated by: Hung Aguilar M.D. on 03/27/2024 at 16:54 Approved by: Hung Aguilar M.D. on 03/27/2024 at 16:58
== END ==
PROVIDERS: PCP Registered Nurse Diabetes Educator; Referring Provider Registered Nurse Diabetes Educator; Visit Provider Registered Nurse Diabetes Educator
DX: S49.92XA Unspecified injury of left shoulder and upper arm, initial encounter (principal); W18.30XA Fall on same level, unspecified, initial encounter
CPT/HCPCS: 73000; 73110

== ENCOUNTER → 2024-08-07 08:57 | Outpatient (CLI) | payer BC, SELFPAY ==
[2024-08-07 09:45] LABS: Hematocrit 37.6 % (36-46); Hemoglobin 12.6 g/dL (12.0-16.0); Mean Corpuscular HGB Conc 33.5 % (30-36); Mean Corpuscular Hemoglobin 32.1 PG (26-34); Mean Corpuscular Volume 95.9 fL (80-100); Platelet Count 281 X10^3/uL (150-400); Red Blood Cell Count 3.92 X10^6/uL (4.0-5.2); Red Cell Distribution Width 12.5 % (11.6-14.8); White Blood Cell Count 5.5 X10^3/uL (4.5-11.0)
[2024-08-07 10:13] LABS: Alanine Aminotransferase 24 IU/L (<35); Albumin Globulin Ratio 1.7 (1.0-2.8); Alkaline Phosphatase 57 U/L (38-126); Aspartate Aminotransferase 32 IU/L (14-36); BUN Creatinine Ratio 16.5 (6-22); Bilirubin Total 0.5 mg/dL (0.2-1.3); Blood Urea Nitrogen 15 mg/dL (7-17); Calcium 9.1 mg/dL (8.4-10.2); Carbon Dioxide 27 mmol/L (22-32); Chloride 104 mmol/L (98-107); Cholesterol 171 mg/dL (140-199); Estimated Glomerular Filt Rate > 60 mL/min (>60); Globulin 2.4 g/dL (1.7-4.1); Glucose 87 mg/dL (80-110); HDL Cholesterol 66 mg/dL (40-60); HEMOLYSIS < 15 (0-50); LDL Cholesterol Calculated 88 mg/dL (<100); Potassium 4.2 mmol/L (3.4-5.1); Sodium 138 mmol/L (137-145); Total Protein 6.4 g/dL (6.3-8.2); Triglycerides 85 mg/dL (35-150)
== END ==
PROVIDERS: PCP Registered Nurse Diabetes Educator; Referring Provider Registered Nurse Diabetes Educator; Visit Provider Registered Nurse Diabetes Educator
DX: E78.5 Hyperlipidemia, unspecified (principal); D64.9 Anemia, unspecified
CPT/HCPCS: 36415; 80053; 80061; 85027

== ENCOUNTER → 2025-02-24 09:57 | Outpatient (CLI) | payer MEDICARE, SELFPAY ==
--- NOTE | 2025-02-24 10:01 | DI.MG.S_ITS ---
MM screening mammo BI: 02/24/2025. BI-RADS: 2 CLINICAL: 64-year old female for bilateral screening mammogram. Tyrer-Cuzick lifetime risk of 13.0%. No personal or first-degree family history of breast cancer. Current reported family history of breast cancer: maternal grandmother. The patient had a prior right breast biopsy. PRIOR EXAMS 02/24/2024, 02/22/2023, 02/19/2022, 02/14/2021. MAMMOGRAPHY TECHNIQUE: 2D and 3D (tomosynthesis) digital mammographic views obtained, with additional images as needed for full coverage. Current study was also evaluated with a Computer Aided Detection (CAD) system. DENSITY B. There are scattered areas of fibroglandular density. MAMMOGRAPHY FINDINGS Right: Biopsy marker present on the right. There are no suspicious masses, calcifications, or other findings in the breast. Left: No suspicious mass, asymmetry, microcalcification, or other abnormality seen. IMPRESSION: Right * No evidence of malignancy with benign findings. Left * No evidence of malignancy. RECOMMENDATIONS Bilateral * Annual screening mammography. OVERALL ASSESSMENT CATEGORY BI-RADS-2: Benign. The [employer] recommends annual screening mammography beginning at age 40 for women with average risk of breast cancer. ELECTRONICALLY SIGNED: Juanjose Stern M.D. on 02/26/2025 at 08:03:25 AM PT Interpreting Station ID: [id number]
== END ==
LOC: MAMMO 10:00
PROVIDERS: PCP Registered Nurse Diabetes Educator; Referring Provider Registered Nurse Diabetes Educator; Visit Provider Registered Nurse Diabetes Educator
DX: Z12.31 Encounter for screening mammogram for malignant neoplasm of breast (principal); Z80.3 Family history of malignant neoplasm of breast
CPT/HCPCS: 77063; 77067